=== PATIENT | male | born 1930 | race Caucasian/White ===

== ENCOUNTER 2018-07-22 10:57 | Inpatient (IN) | payer MEDICARE, OTHER ==
[~2018-07-22] VITALS: Ht 167.6 cm; Wt 63.5 kg
[2018-07-22 13:05] VITALS: BP 107/49
[2018-07-22] MEDS ORDERED: ACET325T9 PO (13:33)
[2018-07-22] MEDS ORDERED: VIT1CAPS12 PO (13:33)
[2018-07-22] MEDS ORDERED: MAGN400O7 PO (13:33)
[2018-07-22] MEDS ORDERED: DEXT15DR5 EACHEYE (13:33)
[2018-07-22] MEDS ORDERED: MAG355OR12 PO (13:33)
[2018-07-22] MEDS ORDERED: MIRT15TA PO (13:33)
[2018-07-22] MEDS ORDERED: CALC200T3 PO (13:33)
[2018-07-22] MEDS ORDERED: BUPR150T15 PO (13:33)
[2018-07-22] MEDS ORDERED: HYOSCYAMINE 0.125 MG TAB.RAPDIS PO PRN (14:00)
[2018-07-22] MEDS ORDERED: POLYVINYL ALCOHOL 1.4% OPHTH SOLUTION 15ML BOTTLE. OU PRN (14:00)
[2018-07-22] MEDS ORDERED: LOPERAMIDE 2 MG/15 ML ORAL SUSP. PO PRN (14:00)
[2018-07-22] MEDS ORDERED: CALCIUM CARBONATE 500 MG TAB.CHEW PO PRN (14:00)
[2018-07-22] MEDS ORDERED: MAG HYDROX/ALUMINUM HYD/SIMETH 30 ML ORAL.SUSP PO PRN (14:00)
[2018-07-22] MEDS ORDERED: SENNOSIDES 8.6 MG TABLET PO PRN (14:00)
[2018-07-22] MEDS ORDERED: MAGNESIUM HYDROXIDE 2,400 MG/30 ML ORAL.SUSP. PO PRN (14:00)
[2018-07-22] MEDS: LISINOPRIL 20 MG TABLET PO SCH (14:42)
[2018-07-22] MEDS: POTASSIUM CHLORIDE 10 MEQ TABLET.ER. PO SCH (14:42)
[2018-07-22] MEDS: amLODIPine BESYLATE 5 MG TABLET PO SCH (14:42)
[2018-07-22] MEDS: PANTOPRAZOLE 40 MG TABLET.DR. PO SCH (14:42)
[2018-07-22] MEDS: MULTIVITAMIN with MINERAL TABLET. PO SCH (14:42)
--- NOTE | 2018-07-22 15:08 | PDOC2 ---
CONSULT Date of Consult Date of Consult DATE: 07/22/18 TIME: 14:36 Reason for Consult Reason for Consult: iron def anemia, poor appetite History of Present Illness Reason for Visit: This is an 87-year-old male who has been at [facility]. He recently describes some confusion and poor by mouth intake but denies nausea or vomiting. He developed acute confusion recently and was transferred to [facility] where it was discovered that he did not have the presumed urinary infection that was hypothesized but instead has a iron deficient anemia with hemoglobin of 7.7. CT of the head was negative. He also has some dementia and possibly mild depression and remotely has a history of reflux. His family is available and state that he had a negative colonoscopy years ago at [facility] but we don't have those records. He denies hematemesis melena hematochezia or easy bruisability, heartburn, dysphagia. Does relate a several week history of constipation. He was not aware that he was anemic and this is a new complaint for him. Does take aspirin 325 mg daily but denies other NSAIDs or blood thinners. Past Medical History Cardiovascular: HTN GI: GERD Heme/Onc: Cancer (prostate (prostatectomy) and bladder (cystoscopy) ) Psych: Depression Past Surgical History Past Surgical History: Other (prostatectomy) Social History No ALCOHOL: occassional Current Medications Current Medications Current Medications Dextrose/Sodium Chloride 1,000 ml @ 75 mls/hr [id number] IV ; Start 07/22/18 at 14:00 Acetaminophen (Tylenol) 650 mg PRN Q4HRS PRN PO MILD PAIN / TEMP; Start 07/22/18 at 14:00 Bupropion HCl (Wellbutrin Xl) 150 mg DAILY PO ; Start 07/23/18 at 09:00 Calcium Carbonate/ Glycine (Tums) 200 mg PRN Q2HR PRN PO GI SYMPTOMS; Start 07/22/18 at 14:00 Al Hydroxide/Mg Hydroxide (Mylanta Plus Xs) 30 ml PRN DAILY PRN PO DYSPEPSIA; Start 07/22/18 at 14:00 Magnesium Hydroxide (Milk Of Magnesia) 2,400 mg PRN DAILY PRN PO CONSTIPATION; Start 07/22/18 at 14:00 Artificial Tears (Artificial Tears) 1 drop PRN Q4HRS PRN OU DRY EYE; Start 07/22/18 at 14:00 Mirtazapine (Remeron) 7.5 mg QHS PO ; Start 07/22/18 at 21:00 Multivitamins/ Minerals (I-Aliyah) 1 tab BID PO ; Start 07/22/18 at 21:00 Carvedilol (Coreg) 6.25 mg BIDWMEALS PO ; Start 07/22/18 at 17:00 Docusate Sodium (Colace) 100 mg BID PO ; Start 07/22/18 at 21:00 Donepezil HCl (Aricept) 5 mg QHS PO ; Start 07/22/18 at 21:00 Hyoscyamine (Anaspaz) 0.125 mg PRN Q4HRS PRN PO STOMACH CRAMPING; Start 07/22/18 at 14:00 Lisinopril (Prinivil) 20 mg DAILY PO ; Start 07/22/18 at 15:00 Loperamide HCl (Immodium Oral Susp) 1 mg PRN Q1HR PRN PO DIARRHEA; Start 07/22/18 at 14:00 Multivitamins (Thera M Plus) 1 tab DAILY PO ; Start 07/22/18 at 15:00 Oxybutynin Chloride (Ditropan) 5 mg BID PO ; Start 07/22/18 at 21:00 Pantoprazole Sodium (Protonix) 40 mg DAILYAC PO ; Start 07/22/18 at 15:00 Polyethylene Glycol (miraLAX PACKET) 17 gm BID PO ; Start 07/22/18 at 21:00 Potassium Chloride (Klor-Con) 10 meq DAILYWBKFT PO ; Start 07/22/18 at 15:00 Sennosides (Senna) 8.6 mg PRN BID PRN PO CONSTIPATION; Start 07/22/18 at 14:00 Amlodipine Besylate (Norvasc) 5 mg DAILY PO ; Start 07/22/18 at 15:00 Active Scripts Active Reported Tums (Calcium Carbonate) 200 Mg Tab.chew 200 Mg PO PRN Q2HR PRN Wellbutrin Xl (Bupropion Hcl) 150 Mg Tab.er.24h 1 Tab PO DAILY Artificial Tears Eye Drops (Dextran 70/Hypromellose) 15 Ml Drops 1 Drop EACHEYE PRN Q4HRS Preservision Areds Softgel (Vit A/Vit C/Vit E/Zinc/Copper) 1 Each Capsule 1 Cap PO BID Maalox Maximum Strength Susp (Mag Hydrox/Al Hydrox/Simeth) 355 Ml Oral.susp 30 Ml PO PRN QID PRN Milk Of Magnesia (Magnesium Hydroxide) 400 Mg/5 Ml Oral.susp 30 Ml PO PRN DAILY PRN Tylenol (Acetaminophen) 325 Mg Tablet 2 Tab PO PRN Q4HRS Remeron (Mirtazapine) 15 Mg Tablet 7.5 Mg PO QHS Allergies Allergies: Coded Allergies: Penicillins (Verified Allergy, Severe, Shortness of Air, 07/22/18) pt reports violent reaction,hives, swelling,and short of air ROS PSYCHOLOGICAL ROS: YES: Memory difficulties Genitourinary: YES Incontinence Physical Exam General: Alert, Oriented X3 HEENT: PERRLA, Other (hard of hearing) Lungs: Clear to auscultation Heart: Regular rate, Normal S1, Normal S2 Abdomen: Normal bowel sounds, Soft, No tenderness, No hepatosplenomegaly, No masses Extremities: No clubbing, No cyanosis Skin: No rashes Neuro: Normal speech Vitals VITALS Vital Signs Date Time Temp Pulse Resp B/P (MAP) Pulse Ox O2 Delivery O2 Flow Rate FiO2 07/22/18 13:05 98.2 64 18 107/49 (68) 98 Room Air 98.2 Assessment/Plan Assessment/Plan Iron deficiency anemia with hemoglobin 7.7. Unaware of this chronically but clearly this is been going on for some time. He denies any overt bleeding or abdominal pain but occult GI blood loss must be considered. Elevated CRP is disconcerting and suggests the possibility of an underlying inflammatory or neoplastic process such as colon cancer. History of prostate cancer and bladder cancer with urinary incontinence Plan: Check stool for Hemoccult I had a long discussion with daughter and son-in-law and patient about the appropriate workup. I will recommend EGD and colonoscopy since they are agreeable to proceed. This will be arranged on Monday. BALJEET MURILLO MD July 22, 2018 15:08
[2018-07-22] MEDS: IV DEXTROSE 5% - 0.9 % NACL 1,000 ML IV SCH (15:13)
[2018-07-22 15:17] VITALS: BP 112/46
[2018-07-22] MEDS ORDERED: BISACODYL 5 MG TABLET.DR. PO ONE (15:30)
[2018-07-22] MEDS: CARVEDILOL 6.25 MG TABLET. PO SCH (17:26)
[2018-07-22 19:00] VITALS: BP 122/50
[2018-07-22 20:48] LABS: FECAL OB PT NEGATIVE (NEG)
[2018-07-22] MEDS: POLYETHYLENE GLYCOL 3350 17 GM PACKET. PO SCH (20:58)
[2018-07-22] MEDS: MIRTAZAPINE 7.5 MG TABLET. PO SCH (21:30)
[2018-07-22] MEDS: DOCUSATE SODIUM 100 MG CAPSULE. PO SCH (21:30)
[2018-07-22] MEDS: OXYBUTYNIN CHLORIDE 5 MG TABLET PO SCH (21:31)
[2018-07-22] MEDS: MULTIVITAMIN I-VITE TABLET. PO SCH (21:31)
[2018-07-22] MEDS: DONEPEZIL HCL 5 MG TABLET. PO SCH (21:31)
[2018-07-22 23:00] VITALS: BP 120/62
[2018-07-23] MEDS: IV DEXTROSE 5% - 0.9 % NACL 1,000 ML IV SCH ×2 (03:00→15:53)
[2018-07-23 03:02] VITALS: BP 111/39
[2018-07-23 05:13] LABS: BASO % 1 % (0-3); EOS # 0.3 x10^3/uL (0.0-0.7); EOS % 5 % (0-3); HEMATOCRIT 23.3 % (39.0-53.0); HEMOGLOBIN 7.2 g/dL (13.0-17.5); LYMPH # 0.7 x10^3/uL (1.0-4.8); LYMPH % 11 % (24-48); MEAN CORPUSCULAR HEMOGLOBIN 19 pg (25-35); MEAN CORPUSCULAR HGB CONC 31 g/dL (31-37); MEAN CORPUSCULAR VOLUME 63 fL (79-100); MONO # 0.7 x10^3/uL (0.0-1.1); MONO % 11 % (0-9); NEUT # 4.5 x10^3uL (1.8-7.7); NEUT % 72 % (31-73); PLATELET COUNT 349 x10^3/uL (140-400); RED CELL DISTRIBUTION WIDTH 18.5 % (11.5-14.5); WHITE BLOOD COUNT 6.2 x10^3/uL (4.0-11.0)
[2018-07-23 05:42] LABS: ALBUMIN/GLOBULIN RATIO 0.9 (1.0-1.7); CALCIUM 8.8 mg/dL (8.5-10.1); CREATININE 0.7 mg/dL (0.7-1.3); GFR 106.7; POTASSIUM 4.2 mmol/L (3.5-5.1); TOTAL BILIRUBIN 0.3 mg/dL (0.2-1.0); TOTAL PROTEIN 6.3 g/dL (6.4-8.2)
[2018-07-23 07:00] VITALS: BP 126/52
[2018-07-23 07:54] LABS: ANISOCYTOSIS SLIGHT; HYPOCHROMIA MARKED; MICROCYTOSIS MARKED
[2018-07-23 07:55] LABS: OVALOCYTES OCC
[2018-07-23 08:12] LABS: PLT ESTIMATE ADEQUATE (ADEQUATE)
[2018-07-23] MEDS: POTASSIUM CHLORIDE 10 MEQ TABLET.ER. PO SCH (08:18)
[2018-07-23] MEDS: OXYBUTYNIN CHLORIDE 5 MG TABLET PO SCH ×2 (08:18→20:46)
[2018-07-23] MEDS: MULTIVITAMIN with MINERAL TABLET. PO SCH (08:18)
[2018-07-23] MEDS: amLODIPine BESYLATE 5 MG TABLET PO SCH (08:19)
[2018-07-23] MEDS: DOCUSATE SODIUM 100 MG CAPSULE. PO SCH ×2 (08:19→20:46)
[2018-07-23] MEDS: PANTOPRAZOLE 40 MG TABLET.DR. PO SCH (08:19)
[2018-07-23] MEDS: CARVEDILOL 6.25 MG TABLET. PO SCH ×2 (08:19→15:54)
[2018-07-23] MEDS: LISINOPRIL 20 MG TABLET PO SCH (08:19)
[2018-07-23] MEDS: buPROPion XL 150 MG TAB.ER.24H. PO SCH (08:19)
[2018-07-23] MEDS: POLYETHYLENE GLYCOL 3350 17 GM PACKET. PO SCH ×2 (08:20→20:45)
[2018-07-23] MEDS: MULTIVITAMIN I-VITE TABLET. PO SCH ×2 (08:24→21:18)
--- NOTE | 2018-07-23 08:24 | PDOC ---
GI PROGRESS NOTES Date Date/Time DATE: 07/23/18 TIME: 08:08 Subjective Subjective sleeping stool was hemocult negative Objective Vitals Vital Signs Date Time Temp Pulse Resp B/P (MAP) Pulse Ox O2 Delivery O2 Flow Rate FiO2 07/23/18 03:02 99.5 67 18 111/39 (63) 94 Room Air 99.5 07/22/18 23:00 100.2 74 16 120/62 (81) 94 Room Air 100.2 07/22/18 20:30 Room Air 07/22/18 19:00 99.4 68 16 122/50 (74) 96 Room Air 99.4 07/22/18 17:26 61 112/46 07/22/18 15:17 98.3 61 19 112/46 (68) 98 Room Air 98.3 07/22/18 13:05 98.2 64 18 107/49 (68) 98 Room Air 98.2 07/22/18 13:00 Room Air Labs Labs Laboratory Tests Test 07/22/18 20:20 07/23/18 04:30 Stool Occult Blood Negative (NEG) White Blood Count 6.2 x10^3/uL (4.0-11.0) Red Blood Count 3.70 x10^6/uL (4.30-5.70) Hemoglobin 7.2 g/dL (13.0-17.5) Hematocrit 23.3 % (39.0-53.0) Mean Corpuscular Volume 63 fL (79-100) Mean Corpuscular Hemoglobin 19 pg (25-35) Mean Corpuscular Hemoglobin Concent 31 g/dL (31-37) Red Cell Distribution Width 18.5 % (11.5-14.5) Platelet Count 349 x10^3/uL (140-400) Neutrophils (%) (Auto) 72 % (31-73) Lymphocytes (%) (Auto) 11 % (24-48) Monocytes (%) (Auto) 11 % (0-9) Eosinophils (%) (Auto) 5 % (0-3) Basophils (%) (Auto) 1 % (0-3) Neutrophils # (Auto) 4.5 x10^3uL (1.8-7.7) Lymphocytes # (Auto) 0.7 x10^3/uL (1.0-4.8) Monocytes # (Auto) 0.7 x10^3/uL (0.0-1.1) Eosinophils # (Auto) 0.3 x10^3/uL (0.0-0.7) Basophils # (Auto) 0.0 x10^3/uL (0.0-0.2) Hypochromasia Marked Anisocytosis Slight Microcytosis Marked Ovalocytes Occ Sodium Level 134 mmol/L (136-145) Potassium Level 4.2 mmol/L (3.5-5.1) Chloride Level 100 mmol/L (98-107) Carbon Dioxide Level 25 mmol/L (21-32) Anion Gap 9 (6-14) Blood Urea Nitrogen 7 mg/dL (8-26) Creatinine 0.7 mg/dL (0.7-1.3) Estimated GFR (Cockcroft-Gault) 106.7 BUN/Creatinine Ratio 10 (6-20) Glucose Level 125 mg/dL (70-99) Calcium Level 8.8 mg/dL (8.5-10.1) Total Bilirubin 0.3 mg/dL (0.2-1.0) Aspartate Amino Transf (AST/SGOT) 13 U/L (15-37) Alanine Aminotransferase (ALT/SGPT) 12 U/L (16-63) Alkaline Phosphatase 120 U/L (46-116) Total Protein 6.3 g/dL (6.4-8.2) Albumin 3.0 g/dL (3.4-5.0) Albumin/Globulin Ratio 0.9 (1.0-1.7) Physical Exam Physical Exam chest- clear abd - soft non tender no masses Assessment Assessment Iron Def anemia- chronic- no overt bleeding but must r/o occult GI source Elevated CRP- need to r/o inflammation or occult Ca Plan- proceed with bowel prep for EGD and colonoscopy tomorrow He had CT head at [facility] but consider CT abd/pelvis as well if not done- will defer to BALJEET Herrera MD July 23, 2018 08:24
[2018-07-23] MEDS ORDERED: IRON SUCROSE COMPLEX 200 MG in IV NORMAL SALINE 100ML 100 ML IV ONE (09:00)
--- NOTE | 2018-07-23 10:32 | HP ---
ADMIT DATE: 07/22/2018 HISTORY OF PRESENT ILLNESS: The patient is an 87-year-old male patient, a resident at [facility], who was brought to the Emergency Room with altered mental status. According to the [facility] nursing staff and the patient's family, he seemed to be having quite a bit of confusion during the night. In fact, the night before admission, he was found in his car and told the staff that he needed to drop his car off to [place]. Apparently, one of his daughters used to live there. The family stated that he has not been eating or drinking much. He has lost more than 10 pounds over the last several weeks, has not had any fever, chills, sweats. At times, he is very lucid and can care for himself. The medication that he takes routinely are blocked by the [facility] staff; however, they found a lot of medication in his position in his room. Family is concerned that he is declining mentally, and he will not be able to take care of himself. He was extensively investigated in the Emergency Room of [facility] and found to be extremely anemic. In fact, his hemoglobin was 7.7 and 25. His MCV was extremely low at 63 consistent with severe iron deficiency anemia. He was also found to be hyponatremic, his serum sodium was 129. His urinalysis was unremarkable and toxic screen was unremarkable and was admitted for further evaluation. I did consult Dr. Bach and Dr. Manzo, psychiatrist. PAST MEDICAL HISTORY: Significant for hypertension, has prostate cancer, benign prostatic hypertrophy. He underwent apparently prostatectomy. He is also incontinent of urine. PAST SURGICAL HISTORY: Significant for prostatectomy. ALLERGIES: HE IS ALLERGIC TO PENICILLIN. MEDICATIONS: He is currently on following medications, hyoscyamine sulfate 0.125 mg as needed for bladder spasm, carvedilol 6.25 mg twice a day, amlodipine 5 mg once a day, lisinopril 20 mg once a day, aspirin 325 mg daily, acetaminophen 650 mg every 4 hours, Wellbutrin-XL 150 mg daily. He is on mirtazapine 7.5 mg at bedtime, potassium chloride 10 mEq daily. He is on hydrochlorothiazide 25 mg daily. He is on artificial tears 1 drop to both eyes 4 times a day. He is on loperamide as needed for diarrhea, Maalox 15 mL every 4 hours as needed. He is on calcium carbonate 200 mg every 2 hours as needed for heartburn, Colace 100 mg twice a day, milk of magnesia 30 mL p.o. daily p.r.n. for constipation, MiraLax 17 grams daily p.r.n. for constipation, Senna twice a day, Protonix 20 mg once a day, oxybutynin chloride for Ditropan XL 10 mg once a day, multivitamin 1 tablet once a day. He is also on PreserVision added soft gel twice a day. FAMILY HISTORY: Unobtainable and probably noncontributory. SOCIAL HISTORY: He is recently. He has 2 daughters. He stated that he used to be a heavy smoker, but quit when he was 35 years old. 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 He is currently residing at [facility]. PHYSICAL EXAMINATION: GENERAL: When I examined him this morning, he looked well and was clearly in no apparent respiratory distress, pale, but no jaundice or cyanosis. No lymphadenopathy, no thyromegaly. No jugular venous distension. No lower limb edema. VITAL SIGNS: His heart rate was 68, blood pressure 126/52, temperature was 99, respiratory rate was 18 and oxygen saturation was 97%. HEAD, EYES, EARS, NOSE AND THROAT: Showed normocephalic, atraumatic. NECK: Supple. HEART: Showed normal first and second heart sounds. No gallop, rub or murmur. CHEST: Clear to auscultation. No crepitation or rhonchi. ABDOMEN: Distended, soft, nontender. NEUROLOGIC: He is demented, but without any obvious lateralizing sign. All his cranial nerves are intact. EXTREMITIES: He moves extremities without difficulty. LABORATORY DATA: His lab work this morning showed again that his white cell count was 6200, hemoglobin 7.2, hematocrit 23.3, MCV 63 and platelet count of 349,000, with normal manual differential. His chemistry showed a serum sodium 134, potassium 4.2, chloride 100, bicarbonate 25, anion gap of 9, BUN 7, creatinine 0.7, estimated GFR was 106 mL per minute. His glucose 125, calcium was 8.8. Total bilirubin, AST and ALT are normal. Alkaline phosphatase was slightly elevated. Total protein was 6.3, albumin 3. ASSESSMENT AND PLAN: In summary, this is an 87-year-old male patient who was admitted through the Emergency Room to [facility] and was transferred here for further evaluation. He was found to have hyponatremia, and I did discontinue his hydrochlorothiazide. His serum sodium is better today at 134. He has microcytic hypochromic anemia with hemoglobin 7.7, in fact, today's hemoglobin 7.2, hematocrit was 23 and his MCV was only 63. We transferred him to [facility] to consult the Gastroenterology. His family wanted to investigate this further including his EGD and colonoscopy. I will arrange for him to have a CT scan of the abdomen and pelvis and would check a stool for occult blood and decide on further management accordingly. LORI SIMENTAL MD DR: CHIDI/chiqui JOB#: [id number] / [id number]
[2018-07-23] MEDS ORDERED: IOHEXOL 300 MG/ML 100ML VIAL. IV ONE (10:45)
[2018-07-23] MEDS ORDERED: IOHEXOL 240 MG/ML 50ML VIAL. PO ONE (10:45)
[2018-07-23 11:00] VITALS: BP 133/54
--- NOTE | 2018-07-23 13:01 | RAD ---
Examination: CT of the abdomen pelvis with oral and IV contrast HISTORY: History of iron deficiency anemia, high ESR COMPARISON: None available Technique: Axial CT images of the abdomen pelvis were performed with oral and IV contrast. Coronal and sagittal reformats are performed Exposure: One or more of the following individualized dose reduction techniques were utilized for this examination: 1. Automated exposure control 2. Adjustment of the mA and/or kV according to patient size 3. Use of iterative reconstruction technique FINDINGS: Linear atelectasis is identified in the bibasilar lungs. No evidence of free air identified in the abdomen. The visualized liver, spleen, adrenals grossly appears unremarkable. The gallbladder is mildly distended. There is mild enhancement of the wall of the gallbladder. The visualized pancreas grossly appears unremarkable. The small bowel is nondilated. Moderate amount of feces and gas identified in the colon. Sigmoid colon diverticulosis. Mild bilateral perinephric fat stranding identified. The kidneys enhance symmetrically. No evidence of hydronephrosis. Moderate aortic atherosclerosis. Moderate degenerative changes lumbar spine. Calcification in the region of the prostate. IMPRESSION: 1. Mild bilateral perinephric fat stranding, nonspecific could be due to medical renal disease.. 2. Mild enhancement of the gallbladder wall. Ultrasound right upper quadrant can be considered to exclude cholecystitis. 3. Moderate hiatal hernia. Electronically signed by: Dc Capone MD (07/23/2018 12:58 PM) [place] [id number]
[2018-07-23 15:00] VITALS: BP 118/52
[2018-07-23] MEDS ORDERED: POLYETHYLENE GLYCOL 3350 BTL 238 GM POWDER PO ONE (15:00)
--- NOTE | 2018-07-23 15:04 | NUR ---
SW following pt for anticipated dc needs. Chart reviewed and discussed with RN. SW confirmed Pt is a resident at [facility]. PT/OT pending and Pt declined to participate with PT today. SW will await for PT/OT recommendation to assess skilled needs. Will continue to follow.
[2018-07-23 19:00] VITALS: BP 153/63
[2018-07-23] MEDS: DONEPEZIL HCL 5 MG TABLET. PO SCH (20:46)
[2018-07-23] MEDS: MIRTAZAPINE 7.5 MG TABLET. PO SCH (20:46)
[2018-07-23 23:00] VITALS: BP 137/66
[2018-07-23] MEDS: ACETAMINOPHEN 325 MG TABLET. PO PRN (23:38)
[2018-07-24] MEDS ORDERED: PIP/TAZO PER PHARMACY MC PRN (00:45)
[2018-07-24] MEDS ORDERED: VANCOMYCIN 1.5 GM in IV NORMAL SALINE 500ML BAG 500 ML IV ONE (01:00)
--- NOTE | 2018-07-24 01:09 | RAD ---
CHEST AP ONLY Clinical Indication: Fever and cough. Comparison: None. Findings: Atherosclerotic thoracic aorta. Cardiac size is normal. There are bilateral central interstitial and alveolar opacities. There is elevation of right hemidiaphragm. No pleural effusion or pneumothorax. Degenerative endplate spurring of the thoracic spine. IMPRESSION: Bilateral central interstitial and alveolar opacities may be infectious/inflammatory. Electronically signed by: Jose Wilder MD (07/24/2018 1:07 AM) [id number]
[2018-07-24 01:49] LABS: CREATININE 0.7 mg/dL (0.7-1.3); GFR 106.7; POTASSIUM 3.7 mmol/L (3.5-5.1)
[2018-07-24 02:55] VITALS: BP 113/51
[2018-07-24 03:09] LABS: BASO % 1 % (0-3); EOS % 1 % (0-3); HEMATOCRIT 24.4 % (39.0-53.0); HEMOGLOBIN 7.4 g/dL (13.0-17.5); LYMPH # 0.4 x10^3/uL (1.0-4.8); LYMPH % 6 % (24-48); MEAN CORPUSCULAR HEMOGLOBIN 19 pg (25-35); MEAN CORPUSCULAR HGB CONC 30 g/dL (31-37); MEAN CORPUSCULAR VOLUME 63 fL (79-100); MONO # 0.5 x10^3/uL (0.0-1.1); MONO % 7 % (0-9); NEUT % 86 % (31-73); PLATELET COUNT 336 x10^3/uL (140-400); RED BLOOD COUNT 3.88 x10^6/uL (4.30-5.70); RED CELL DISTRIBUTION WIDTH 18.3 % (11.5-14.5); WHITE BLOOD COUNT 7.1 x10^3/uL (4.0-11.0)
[2018-07-24 03:23] LABS: BILIRUBIN,URINE NEGATIVE (NEG); CLARITY,URINE CLEAR; COLOR,URINE YELLOW; NITRITE,URINE NEGATIVE (NEG); PROTEIN,URINE NEGATIVE (NEG-TRACE); UROBILINOGEN,URINE 0.2 mg/dL (0.2 mg/dL)
[2018-07-24 03:25] LABS: BACTERIA,URINE 0 /HPF (0-FEW); SQUAMOUS EPITHELIAL CELL,UR FEW /LPF
[2018-07-24 03:43] LABS: % BANDS 1 % (0-9); % EOS 1 % (0-5); % LYMPHS 8 % (24-48); % MONOS 5 % (0-10); % SEGS 85 % (35-66); HYPOCHROMIA MARKED; MICROCYTOSIS MARKED; PLT ESTIMATE ADEQUATE (ADEQUATE)
[2018-07-24] MEDS: VANCOMYCIN PER PHARMACY MC PRN (03:55)
--- NOTE | 2018-07-24 03:55 | NUR ---
Pharmacy Vancomycin Dosing Note S:Consulted to monitor and dose vancomycin started 07/24/18. O:ELEANOR MAURICIO is a 87 year old M with Empiric . Height: 5 feet, 6 inches Weight: 63.282332 kg [place] Body Weight: 63.80 Adjusted Body Weight: 63.68 Dosing Weight: Actual Other Antibiotics: LABS: Last BUN: 4 Last Creatinine: 0.7 Creatinine Clearance: 47 mL/min Last WBC: 6.2 Last Procalcitonin: Tmax (past 24 hours): 102.9 Microbiology: I/O: Drug Levels: Last level: on at Last dose given 07/24/18 at 0200 Vancomycin Dosing: Loading Dose: 1500 mg x1 Dosing Weight: Actual Target Trough: 15-20 A: Based on: WT AND CRCL P: 1. Begin Vancomycin 1000 mg IV q24h 2. Follow up Trough level on 07/26/18 at 0130 3. Pharmacy will continue to monitor, follow and adjust therapy as needed. STEPHENIE PENG RPH, 07/24/18 [id number] Signed: 07/24/18 at 035 by STEPHENIE PENG RPH PHA
[2018-07-24] MEDS: IV DEXTROSE 5% - 0.9 % NACL 1,000 ML IV SCH ×2 (04:48→17:31)
[2018-07-24] MEDS: ACETAMINOPHEN 325 MG TABLET. PO PRN (04:59)
[2018-07-24 07:00] VITALS: BP 137/66
[2018-07-24] MEDS ORDERED: PROCHLORPERAZINE 10 MG/2 ML VIAL. IV PRN (07:00)
[2018-07-24] MEDS ORDERED: HYDROmorphone 2 MG/ML VIAL IV PRN (07:00)
[2018-07-24] MEDS ORDERED: LIDOCAINE 1% PF 2 ML VIAL. ID PRN (07:00)
[2018-07-24] MEDS ORDERED: IV RINGERS,LACTATED 1000ML 1,000 ML IV SCH (07:00)
[2018-07-24] MEDS ORDERED: MORPHINE SULFATE 2 MG/ML VIAL. IV PRN (07:00)
[2018-07-24] MEDS ORDERED: fentaNYL PF VIAL 100 MCG/2 ML VIAL IV PRN ×2 (07:00)
[2018-07-24] MEDS: PANTOPRAZOLE 40 MG TABLET.DR. PO SCH (07:30)
[2018-07-24] MEDS: POTASSIUM CHLORIDE 10 MEQ TABLET.ER. PO SCH (08:00)
[2018-07-24] MEDS ORDERED: MAGNESIUM CITRATE 296 ML SOLUTION. PO ONE (08:00)
[2018-07-24] MEDS ORDERED: BISACODYL 5 MG TABLET.DR. PO ONE (08:00)
[2018-07-24] MEDS: CARVEDILOL 6.25 MG TABLET. PO SCH ×2 (08:11→16:13)
--- NOTE | 2018-07-24 09:55 | PDOC ---
Objective: Objective: Reviewed chart, d/w RN - not much results from prep. D/w Dr. Smith earlier this morning. Tmax 102.9. Vital Signs: Vital Signs Date Time Temp Pulse Resp B/P (MAP) Pulse Ox O2 Delivery O2 Flow Rate FiO2 07/24/18 08:11 89 137/66 07/24/18 08:00 Room Air 07/24/18 07:00 102.9 18 90 102.9 Labs: Laboratory Tests Test 07/24/18 01:05 07/24/18 01:28 White Blood Count 7.1 x10^3/uL Red Blood Count 3.88 x10^6/uL Hemoglobin 7.4 g/dL Hematocrit 24.4 % Mean Corpuscular Volume 63 fL Mean Corpuscular Hemoglobin 19 pg Mean Corpuscular Hemoglobin Concent 30 g/dL Red Cell Distribution Width 18.3 % Platelet Count 336 x10^3/uL Neutrophils (%) (Auto) 86 % Lymphocytes (%) (Auto) 6 % Monocytes (%) (Auto) 7 % Eosinophils (%) (Auto) 1 % Basophils (%) (Auto) 1 % Neutrophils # (Auto) 6.0 x10^3uL Lymphocytes # (Auto) 0.4 x10^3/uL Monocytes # (Auto) 0.5 x10^3/uL Eosinophils # (Auto) 0.0 x10^3/uL Basophils # (Auto) 0.0 x10^3/uL Segmented Neutrophils % 85 % Band Neutrophils % 1 % Lymphocytes % 8 % Monocytes % 5 % Eosinophils % 1 % Platelet Estimate Adequate Hypochromasia Marked Microcytosis Marked Sodium Level 132 mmol/L Potassium Level 3.7 mmol/L Chloride Level 97 mmol/L Carbon Dioxide Level 24 mmol/L Anion Gap 11 Blood Urea Nitrogen 4 mg/dL Creatinine 0.7 mg/dL Estimated GFR (Cockcroft-Gault) 106.7 Glucose Level 134 mg/dL Lactic Acid Level 1.5 mmol/L Calcium Level 9.0 mg/dL Urine Collection Type Unknown Urine Color Yellow Urine Clarity Clear Urine pH 6.0 Urine Specific [place] 1.025 Urine Protein Negative mg/dL Urine Glucose (UA) Negative mg/dL Urine Ketones (Stick) Negative mg/dL Urine Blood Trace Urine Nitrite Negative Urine Bilirubin Negative Urine Urobilinogen Dipstick 0.2 mg/dL Urine Leukocyte Esterase Negative Urine RBC 1-2 /HPF Urine WBC 1-4 /HPF Urine Squamous Epithelial Cells Few /LPF Urine Bacteria 0 /HPF Urine Mucus Mod /LPF Imaging: CT A/P w/ PO and IV contrast 07/23/18 FINDINGS: Linear atelectasis is identified in the bibasilar lungs. No evidence of free air identified in the abdomen. The visualized liver, spleen, adrenals grossly appears unremarkable. The gallbladder is mildly distended. There is mild enhancement of the wall of the gallbladder. The visualized pancreas grossly appears unremarkable. The small bowel is nondilated. Moderate amount of feces and gas identified in the colon. Sigmoid colon diverticulosis. Mild bilateral perinephric fat stranding identified. The kidneys enhance symmetrically. No evidence of hydronephrosis. Moderate aortic atherosclerosis. Moderate degenerative changes lumbar spine. Ca lcification in the region of the prostate. IMPRESSION: 1. Mild bilateral perinephric fat stranding, nonspecific could be due to medical renal disease.. 2. Mild enhancement of the gallbladder wall. Ultrasound right upper quadrant can be considered to exclude cholecystitis. 3. Moderate hiatal hernia. CXR 07/24 IMPRESSION: Bilateral central interstitial and alveolar opacities may be infectious/inflammatory. PE: GEN: NAD LUNGS: room air HEART: RRR ABD: NABS, S/ND/NT NEURO/PSYCH: sleeping, did not awaken during exam A/P: JAMILA, elevated CRP Fever -- Note plans for abd US and ID opinion. Reviewed w/ Dr. Stockton - slavacel 'scopes today considering fever. Resume clear liquids, consider prep later today pending hospital course. ANGELINA BHAT July 24, 2018 09:55
--- NOTE | 2018-07-24 10:34 | PDOC ---
Infectious Disease Note Vital Sign Vital Signs Vital Signs Date Time Temp Pulse Resp B/P (MAP) Pulse Ox O2 Delivery O2 Flow Rate FiO2 07/24/18 08:11 89 137/66 07/24/18 08:00 Room Air 07/24/18 07:00 102.9 18 90 102.9 Labs Lab Laboratory Tests Test 07/24/18 01:05 07/24/18 01:28 White Blood Count 7.1 x10^3/uL (4.0-11.0) Red Blood Count 3.88 x10^6/uL (4.30-5.70) Hemoglobin 7.4 g/dL (13.0-17.5) Hematocrit 24.4 % (39.0-53.0) Mean Corpuscular Volume 63 fL (79-100) Mean Corpuscular Hemoglobin 19 pg (25-35) Mean Corpuscular Hemoglobin Concent 30 g/dL (31-37) Red Cell Distribution Width 18.3 % (11.5-14.5) Platelet Count 336 x10^3/uL (140-400) Neutrophils (%) (Auto) 86 % (31-73) Lymphocytes (%) (Auto) 6 % (24-48) Monocytes (%) (Auto) 7 % (0-9) Eosinophils (%) (Auto) 1 % (0-3) Basophils (%) (Auto) 1 % (0-3) Neutrophils # (Auto) 6.0 x10^3uL (1.8-7.7) Lymphocytes # (Auto) 0.4 x10^3/uL (1.0-4.8) Monocytes # (Auto) 0.5 x10^3/uL (0.0-1.1) Eosinophils # (Auto) 0.0 x10^3/uL (0.0-0.7) Basophils # (Auto) 0.0 x10^3/uL (0.0-0.2) Segmented Neutrophils % 85 % (35-66) Band Neutrophils % 1 % (0-9) Lymphocytes % 8 % (24-48) Monocytes % 5 % (0-10) Eosinophils % 1 % (0-5) Platelet Estimate Adequate (ADEQUATE) Hypochromasia Marked Microcytosis Marked Sodium Level 132 mmol/L (136-145) Potassium Level 3.7 mmol/L (3.5-5.1) Chloride Level 97 mmol/L (98-107) Carbon Dioxide Level 24 mmol/L (21-32) Anion Gap 11 (6-14) Blood Urea Nitrogen 4 mg/dL (8-26) Creatinine 0.7 mg/dL (0.7-1.3) Estimated GFR (Cockcroft-Gault) 106.7 Glucose Level 134 mg/dL (70-99) Lactic Acid Level 1.5 mmol/L (0.4-2.0) Calcium Level 9.0 mg/dL (8.5-10.1) Urine Collection Type Unknown Urine Color Yellow Urine Clarity Clear Urine pH 6.0 Urine Specific [place] 1.025 Urine Protein Negative mg/dL (NEG-TRACE) Urine Glucose (UA) Negative mg/dL (NEG) Urine Ketones (Stick) Negative mg/dL (NEG) Urine Blood Trace (NEG) Urine Nitrite Negative (NEG) Urine Bilirubin Negative (NEG) Urine Urobilinogen Dipstick 0.2 mg/dL (0.2 mg/dL) Urine Leukocyte Esterase Negative (NEG) Urine RBC 1-2 /HPF (0-2) Urine WBC 1-4 /HPF (0-4) Urine Squamous Epithelial Cells Few /LPF Urine Bacteria 0 /HPF (0-FEW) Urine Mucus Mod /LPF Micro CT abd/pel 07/23 IMPRESSION: 1. Mild bilateral perinephric fat stranding, nonspecific could be due to medical renal disease.. 2. Mild enhancement of the gallbladder wall. Ultrasound right upper quadrant can be considered to exclude cholecystitis. Objective Assessment fever lung infiltrates PCN allergy - long time ago - has had amoxicillin Anemia Plan Plan of Care Check Procalcitonin/lipase/TSH/influenza screen Add meropenem and cont Vanc D/c Levofloxacin for now f/u labs in am F/u blood and urine cults [facility] note reviewed Thank you # [phone] DESMOND BERRIOS MD July 24, 2018 10:34
[2018-07-24 10:51] VITALS: BP 110/58
[2018-07-24] MEDS: buPROPion XL 150 MG TAB.ER.24H. PO SCH (11:19)
[2018-07-24] MEDS: amLODIPine BESYLATE 5 MG TABLET PO SCH (11:20)
[2018-07-24] MEDS: LISINOPRIL 20 MG TABLET PO SCH (11:20)
[2018-07-24] MEDS: OXYBUTYNIN CHLORIDE 5 MG TABLET PO SCH ×2 (11:20→21:28)
[2018-07-24] MEDS: MULTIVITAMIN I-VITE TABLET. PO SCH ×2 (11:20→21:29)
[2018-07-24] MEDS: DOCUSATE SODIUM 100 MG CAPSULE. PO SCH ×2 (11:20→21:28)
[2018-07-24] MEDS: MULTIVITAMIN with MINERAL TABLET. PO SCH (11:20)
[2018-07-24] MEDS: POLYETHYLENE GLYCOL 3350 17 GM PACKET. PO SCH ×2 (11:21→21:28)
[2018-07-24] MEDS: MEROPENEM 500 MG in IV NORMAL SALINE 50ML 50 ML IV SCH ×2 (11:21→17:31)
[2018-07-24 12:13] LABS: INFLUENZA A PATIENT NEGATIVE (NEGATIVE); INFLUENZA B PATIENT NEGATIVE (NEGATIVE)
--- NOTE | 2018-07-24 13:01 | RAD ---
ABDOMEN LTD History: Abnormal CT, fever Comparison: CT exam July 23, 2018 Findings: Multiple sonographic images of the abdomen are submitted. Pancreas is not well-visualized due to bowel gas. There is also suboptimal visualization of the inferior vena cava, right kidney, and left lobe of liver. Right lobe of liver measured about 17 cm longitudinal. Right kidney measured 11.3 x 5.4 x 4.5 cm, no hydronephrosis. Gallbladder is present, nonspecific gallbladder wall thickening about 0.4 cm, no significant intraluminal abnormality of the gallbladder. Common bile back is within normal limits about 0.4 cm. Impression: 1. There is nonspecific gallbladder wall thickening about 0.4 cm, no demonstrable intraluminal abnormality of the gallbladder. There is no biliary ductal dilatation. Electronically signed by: Lenin Moreira MD (07/24/2018 12:58 PM) [id number]
--- NOTE | 2018-07-24 13:03 | NUR ---
SW following Pt. PT/OT on hold today as pt is not feeling well. Pt was going to have EGD today but scheduled for tomorrow due to high temp this morning. ID consulted. Will continue to to follow. JOSE BRIGGS.
[2018-07-24 14:50] VITALS: BP 105/41
[2018-07-24] MEDS ORDERED: VANCOMYCIN PER PHARMACY MC PRN (15:30)
--- NOTE | 2018-07-24 16:00 | PN ---
DATE: 07/24/2018 SUBJECTIVE: The patient is resting slightly propped up, sleeping comfortably, in no apparent distress. He apparently spiked a temperature yesterday up to 102.9. We did glover culture him, started him empirically on IV antibiotic. He has had a CT scan of the abdomen and pelvis with oral and IV contrast, which basically showed that the patient has mild bilateral perinephric fat stranding, nonspecific, could be due to medical renal disease. He has also mild enhancement of gallbladder wall. Ultrasound of right upper quadrant can be considered to exclude cholecystitis and moderate hiatal hernia. He actually was scheduled to have upper and lower GI endoscopy today; however, that was postponed given that he is now febrile. When I saw him this morning, he was resting slightly propped up, sleeping comfortably, in no apparent distress. On questioning him, he denied any complaint. Nursing staff did not voice any concern and stated he had generally an uneventful night. PHYSICAL EXAMINATION: GENERAL: When I examined him, he looked pale, somewhat cachectic, but no jaundice or cyanosis. No lymphadenopathy or thyromegaly. No jugular venous distension. No limb edema. VITAL SIGNS: His heart rate was 89, blood pressure was 137/66, temperature was 102.9, respiratory rate was 18 and oxygen saturation was 90% on room air. HEAD, EYES, EARS, NOSE AND THROAT: Showed normocephalic, atraumatic. NECK: Supple. HEART: Showed normal first and second heart sounds. No gallop, rub or murmur. CHEST: Clear to auscultation. No crepitation or rhonchi. ABDOMEN: Distended, soft, nontender. NEUROLOGIC: He was demented, but without any obvious lateralizing sign. INS AND OUTS: His intake was 1250, no output was recorded. LABORATORY DATA: This morning showed a white cell count 7100, hemoglobin 7.4, hematocrit 24.4, MCV 63 and platelet count 336,000 with normal manual differential. His serum sodium was 132, potassium 3.7, chloride 97, bicarbonate was 24, anion gap of 11, BUN 4, creatinine 0.7, estimated GFR was 106 mL per minute. His glucose was 134, lactic acid was 1.5, calcium was 9. ASSESSMENT: This is an 87-year-old male patient who was transferred from [facility]. He was admitted with: 1. Altered mental status. 2. He was found to have hyponatremia. 3. Severe microcytic hypochromic anemia with low iron stores. 4. He has also elevated inflammatory markers including sed rate and CRP. He was seen in consultation by the cardiology fellow and the plan was for him to have esophagogastroduodenoscopy and colonoscopy, unfortunately he spiked a temperature. We did glover culture him yesterday, started him empirically on IV vancomycin and Levaquin as he is ALLERGIC TO PENICILLIN. PLAN: Is to continue with the IV antibiotic. Continue with IV fluid. I have consulted the Infectious Disease specialist to assist with antibiotic management. LORI SIMENTAL MD DR: CHIDI/chiqui JOB#: [id number] / [id number]
[2018-07-24 19:00] VITALS: BP 112/41
[2018-07-24] MEDS: LACTOBACILLUS RHAMNOSUS GG 1 CAPSULE. PO SCH (21:28)
[2018-07-24] MEDS: MIRTAZAPINE 7.5 MG TABLET. PO SCH (21:28)
[2018-07-24] MEDS: DONEPEZIL HCL 5 MG TABLET. PO SCH (21:29)
--- NOTE | 2018-07-24 22:50 | CONS ---
DATE OF CONSULTATION: 07/24/2018 INFECTIOUS DISEASE CONSULTATION: LOCATION: The patient's room 536. REQUESTING PHYSICIAN: Dr. Smith. REASON FOR CONSULTATION: Pneumonia/pyelonephritis versus cholecystitis. HISTORY OF PRESENT ILLNESS: The patient is a pleasant 87-year-old gentleman who is a resident at [facility]. He was brought to on 07/20/2018 secondary to mental status change that occurred overnight. In the ER, he was found to have hemoglobin of 7.7, had very low MCV, had sodium of 129. White blood cell count was 7.4. Urinalysis was negative for blood, negative for nitrite, leukocyte esterase with 1-4 wbc's, few bacteria and occasional squamous cells. He underwent a CT scan of his head that showed no acute intracranial abnormalities. He was worked up by Psychiatry and was concerned about depression. He was then transferred to [facility] for further evaluation with GI. He is to undergo EGD as well as colonoscopy today; however, overnight he had temperatures as high as 102.9. Blood cultures and urine cultures were obtained. Chest x-ray was obtained as well that showed some bilateral central interstitial and alveolar opacities. HE IS REPORTED TO BE PENICILLIN ALLERGIC and he was placed on vancomycin, levofloxacin. Currently, the patient is lying in bed. He states he is fairly comfortable. He denies fever or chills or sweats. He has no gross headache. He has no sore throat, cough or chest pain. Denies any abdominal pain. No nausea, vomiting, no diarrhea. Denies any complications passing his urine. Denies any rash or joint swellings. PAST MEDICAL HISTORY: Positive for gastroesophageal reflux disease, hyperlipidemia, malignant neoplasm of the bladder neck, hypertension, prostate cancer, constipation, macular degeneration, dementia, depression, chronic pain. PAST SURGICAL HISTORY: Listed as prostatectomy. ALLERGIES: LISTED PENICILLIN. HE STATES THAT HAPPENED A LONG TIME AGO AND IS ASSOCIATED WITH HORSE SERUM. He believes he has had amoxicillin, but uncertain. SOCIAL HISTORY: Again, he lives at [place]. He is . He used to have a history of heavy smoking as well as alcohol abuse. FAMILY HISTORY: Noncontributory. CURRENT MEDICATIONS: Include vancomycin, levofloxacin, Norvasc, Wellbutrin, Coreg, Aricept, Prinivil, Remeron, multivitamin, Ditropan and Protonix. Other meds are available and reviewed in the chart. PHYSICAL EXAMINATION: VITAL SIGNS: T-max has been 102.9, pulse 89, respirations 18, blood pressure 137/66, satting 90% on room air. CONSTITUTIONAL: He is lying down in bed. He is fairly comfortable this morning. He is in no acute distress. He is undergoing beginning of an ultrasound on his abdomen. HEENT: He had normal conjunctivae. Oral cavity, pharynx was clear. No thrush. NECK: Supple, no JVD. LUNGS: Clear to auscultation. Decreased in the bases, no wheeze. HEART: S1, S2. ABDOMEN: Soft, nontender, nondistended with positive bowel sounds. EXTREMITIES: Without clubbing, cyanosis nor gross edema. SKIN: Warm to touch without generalized rash. NEUROLOGIC: He moves all extremities without complications. Answers questions appropriately. PSYCHIATRIC: Affect was pleasant. LABORATORY DATA: White count 7.1, hemoglobin 7.4, platelets of 336, neutrophils 85, bands 1, lymphs are 8, creatinine of 0.7. AST was 13, ALT was 12, alkaline phosphatase was 120 on arrival. Urinalysis from the , a few squamous cells, no bacteria. Nitrite and leukocyte esterase were negative, 1-4 wbc's. Occult blood was negative. Chest x-ray reviewed in history of present illness. CT scan, mild bilateral perinephric stranding, nonspecific, mild enhancement of gallbladder, mild hiatal hernia and some linear atelectasis in the bibasilar lungs. IMPRESSION: 1. Fever. 2. Lung infiltrates. 3. PENICILLIN ALLERGY, long time ago, has had amoxicillin. 4. Anemia. RECOMMENDATIONS: We will check procalcitonin, lipase, TSH as well as influenza screen. We will add meropenem, discontinue the levofloxacin. Follow up labs in the morning. Follow up blood cultures, urine cultures, and I did review Luis's notes. We will continue vancomycin. Thank you for asking us to participate in this patient's care. If you have any questions, please do not hesitate to contact me. DESMOND BERRIOS MD DR: BRIAN/chiqui JOB#: [id number] / [id number]
[2018-07-24 23:00] VITALS: BP 132/60
[2018-07-25] VITALS (12 sets, daily range): BP systolic 106–132; BP diastolic 47–71
[2018-07-25] MEDS: MEROPENEM 500 MG in IV NORMAL SALINE 50ML 50 ML IV SCH ×4 (00:20→19:46)
[2018-07-25] MEDS: VANCOMYCIN 1 GM in IV NORMAL SALINE 250ML 250 ML IV SCH (02:07)
[2018-07-25 04:27] LABS: RED BLOOD COUNT 3.34 x10^6/uL (4.30-5.70); RED CELL DISTRIBUTION WIDTH 18.8 % (11.5-14.5); WHITE BLOOD COUNT 5.5 x10^3/uL (4.0-11.0)
[2018-07-25 04:34] LABS: HEMOGLOBIN 6.5 g/dL (13.0-17.5)
[2018-07-25 04:42] LABS: CALCIUM 8.2 mg/dL (8.5-10.1); CREATININE 0.6 mg/dL (0.7-1.3); GFR 127.4; POTASSIUM 3.2 mmol/L (3.5-5.1)
[2018-07-25] MEDS: IV DEXTROSE 5% - 0.9 % NACL 1,000 ML IV SCH ×2 (09:10→22:00)
[2018-07-25] MEDS: buPROPion XL 150 MG TAB.ER.24H. PO SCH (09:12)
[2018-07-25] MEDS: CARVEDILOL 6.25 MG TABLET. PO SCH ×2 (09:12→17:24)
[2018-07-25] MEDS: MULTIVITAMIN I-VITE TABLET. PO SCH ×2 (09:12→21:56)
[2018-07-25] MEDS: DOCUSATE SODIUM 100 MG CAPSULE. PO SCH ×2 (09:13→21:56)
[2018-07-25] MEDS: PANTOPRAZOLE 40 MG TABLET.DR. PO SCH (09:13)
[2018-07-25] MEDS: LISINOPRIL 20 MG TABLET PO SCH (09:13)
[2018-07-25] MEDS: amLODIPine BESYLATE 5 MG TABLET PO SCH (09:13)
[2018-07-25] MEDS: OXYBUTYNIN CHLORIDE 5 MG TABLET PO SCH ×2 (09:13→21:57)
[2018-07-25] MEDS: MULTIVITAMIN with MINERAL TABLET. PO SCH (09:13)
[2018-07-25] MEDS: POTASSIUM CHLORIDE 10 MEQ TABLET.ER. PO SCH (09:13)
[2018-07-25] MEDS: LACTOBACILLUS RHAMNOSUS GG 1 CAPSULE. PO SCH ×2 (09:13→21:56)
[2018-07-25] MEDS: POLYETHYLENE GLYCOL 3350 17 GM PACKET. PO SCH ×2 (09:14→21:57)
--- NOTE | 2018-07-25 09:48 | NUR ---
CHRISTELLE following Pt. PT/OT recommends SNU. Spoke with pt at bedside and pt agreeable with [facility]. CHRISTELLE phoned and faxed referral to [facility]. Pt acceptance and admission pending. CHRISTELLE left a voice mail to pt's daughter, Jeannette, phone: [phone] about dc plan. Will continue to follow. JOSE BRIGGS.
--- NOTE | 2018-07-25 11:14 | PDOC ---
Infectious Disease Note Subjective Subjective Doing ok. No complaints. No F/C/S/N/V/D/SOA/Rash/dysuria ROS ROS o/w neg Vital Sign Vital Signs Vital Signs Date Time Temp Pulse Resp B/P (MAP) Pulse Ox O2 Delivery O2 Flow Rate FiO2 07/25/18 09:13 76 122/50 07/25/18 07:55 Room Air 07/25/18 07:00 99.5 14 90 99.5 Physical Exam PHYSICAL EXAM CONSTITUTIONAL: He is lying down in bed. He is fairly comfortable this morning. He is in no acute distress. He is undergoing beginning of an ultrasound on his abdomen. HEENT: He had normal conjunctivae. Oral cavity, pharynx was clear. No thrush. NECK: Supple, no JVD. LUNGS: Clear to auscultation. Decreased in the bases, no wheeze. HEART: S1, S2. 1-2/6 today ABDOMEN: Soft, nontender, nondistended with positive bowel sounds. EXTREMITIES: Without clubbing, cyanosis nor gross edema. SKIN: Warm to touch without generalized rash. NEUROLOGIC: He moves all extremities without complications. Answers questions appropriately. PSYCHIATRIC: Affect was pleasant Labs Lab Laboratory Tests Test 07/24/18 11:30 07/25/18 03:55 Influenza Type A Antigen Negative (NEGATIVE) Influenza Type B Antigen Negative (NEGATIVE) White Blood Count 5.5 x10^3/uL (4.0-11.0) Red Blood Count 3.34 x10^6/uL (4.30-5.70) Hemoglobin 6.5 g/dL (13.0-17.5) Hematocrit 21.0 % (39.0-53.0) Mean Corpuscular Volume 63 fL (79-100) Mean Corpuscular Hemoglobin 20 pg (25-35) Mean Corpuscular Hemoglobin Concent 31 g/dL (31-37) Red Cell Distribution Width 18.8 % (11.5-14.5) Platelet Count 310 x10^3/uL (140-400) Sodium Level 136 mmol/L (136-145) Potassium Level 3.2 mmol/L (3.5-5.1) Chloride Level 103 mmol/L (98-107) Carbon Dioxide Level 22 mmol/L (21-32) Anion Gap 11 (6-14) Blood Urea Nitrogen 4 mg/dL (8-26) Creatinine 0.6 mg/dL (0.7-1.3) Estimated GFR (Cockcroft-Gault) 127.4 Glucose Level 301 mg/dL (70-99) Calcium Level 8.2 mg/dL (8.5-10.1) Micro Abd U/S 07/24 Impression: 1. There is nonspecific gallbladder wall thickening about 0.4 cm, no demonstrable intraluminal abnormality of the gallbladder. There is no biliary ductal dilatation. CT abd/pel 07/23 IMPRESSION: 1. Mild bilateral perinephric fat stranding, nonspecific could be due to medical renal disease.. 2. Mild enhancement of the gallbladder wall. Ultrasound right upper quadrant can be considered to exclude cholecystitis. Objective Assessment sepsis - strep vs Enterococcus 06/14 bottles 07/24 Murmur - maybe related to anemia fever - better lung infiltrates PCN allergy - long time ago - has had amoxicillin Anemia Plan Plan of Care ECHO Repeat Blood cults in am Cont meropenem and cont Vanc f/u labs in am F/u blood and urine cults PRBCs today DESMOND BERRIOS MD July 25, 2018 11:14
[2018-07-25] MEDS: ACETAMINOPHEN 325 MG TABLET. PO PRN (11:17)
--- NOTE | 2018-07-25 13:11 | PDOC ---
Subjective: Subjective: Says he feels the same and nothing's wrong and he doesn't even know why he's here and no one tells him anything. I asked him if he's going to eat his lunch tray - "probably not because I have no taste for anything." Denies pain, says had a couple small stools. Objective: Objective: D/w RN - drinks water, doesn't eat jello or other clear liquids, does take Miralax, has had a couple loose stools. Tmax 99.5. Vital Signs: Vital Signs Date Time Temp Pulse Resp B/P (MAP) Pulse Ox O2 Delivery O2 Flow Rate FiO2 07/25/18 11:40 99.1 80 16 116/47 99.1 07/25/18 11:00 92 Room Air Labs: Laboratory Tests Test 07/25/18 03:55 White Blood Count 5.5 x10^3/uL Red Blood Count 3.34 x10^6/uL Hemoglobin 6.5 g/dL Hematocrit 21.0 % Mean Corpuscular Volume 63 fL Mean Corpuscular Hemoglobin 20 pg Mean Corpuscular Hemoglobin Concent 31 g/dL Red Cell Distribution Width 18.8 % Platelet Count 310 x10^3/uL Sodium Level 136 mmol/L Potassium Level 3.2 mmol/L Chloride Level 103 mmol/L Carbon Dioxide Level 22 mmol/L Anion Gap 11 Blood Urea Nitrogen 4 mg/dL Creatinine 0.6 mg/dL Estimated GFR (Cockcroft-Gault) 127.4 Glucose Level 301 mg/dL Calcium Level 8.2 mg/dL BLOOD CULTURE Final GRAM POSITIVE COCCI IN CHAINS IN 4 OF 4 BOTTLES (2 SETS DRAWN). CALLED TO SAHIL ADLER ON 5N 07/25/18 AT 0823 BY Alden STANTON. CULTURES HAVE BEEN SENT TO LAB [facility] FOR FURTHER IDENTIFICATION. Imaging: RUQ US Impression: 1. There is nonspecific gallbladder wall thickening about 0.4 cm, no demonstrable intraluminal abnormality of the gallbladder. There is no biliary ductal dilatation. PE: GEN: NAD - was sleeping, blood transfusing LUNGS: CTAB HEART: RRR ABD: S/ND/NT NEURO/PSYCH: A & O 3 A/P: JAMILA Anorexia GPC bacteremia -- D/w Dr. Feliciano - scopes might be helpful pending final BC results. He didn't want to prep on Monday - still not sure he'd cooperate. Reviewed w/ Dr. Pimentel (covering for Dr. Stockton today) - without overt bleeding and with bacteremia, consider waiting on 'scopes for now but would defer to Dr. Stockton. Reviewed w/ Dr. Stockton - will tentatively plan on scopes Monday afternoon w/ Dulcolax and Mag Citrate prep tomorrow. D/w [place]. ANGELINA BHAT July 25, 2018 13:10
--- NOTE | 2018-07-25 15:20 | NUR ---
CHRISTELLE following pt. Pt has been accepted at [facility] pending IV abx needs. Tamela reported as long as Pt is not on expensive IV abx they will accommodate pt. CHRISTELLE discussed at this time there is no recommendation for [facility] IV abx. CHRISTELLE left a voice mail to pt's daughter, Jeannette regarding plan.
--- NOTE | 2018-07-25 15:46 | CARD ---
MR#: [id number] Date of Study: 07/25/2018 Ordering Physician: DESMOND BERROIS, Referring Physician: LORI SIMENTAL, Tech: Romelia Hoffman APPROVED REPORT EXAM: Two-dimensional and M-mode echocardiogram with Doppler and color Doppler. Other Information Quality : Good INDICATION SOB 2D DIMENSIONS RVDd2.9 (2.9-3.5cm)Left Atrium(2D)4.1 (1.6-4.0cm) IVSd1.2 (0.7-1.1cm)Aortic Root(2D)3.0 (2.0-3.7cm) LVDd5.3 (3.9-5.9cm)LVOT Diameter2.0 (1.8-2.4cm) PWd1.0 (0.7-1.1cm)LVDs2.7 (2.5-4.0cm) FS (%) 49.1 %SV106.4 ml Aortic Valve AoV Peak Eladio.214.5cm/sAoV VTI48.6cm AO Peak GR.18.4mmHgLVOT VTI 19.07cm AO Mean GR.12mmHgAI P 1/2 Azeb5zk Mitral Valve MV E Udbrxyqu463.4cm/sMV DECEL AUYP087kj MV A Utbhxktl84.7cm/sE/A Ratio1.4 TDI Lateral E' P. V8.62cm/sMedial E' P. V8.75cm/s E/Lateral E'12.0E/Medial E'11.8 Tricuspid Valve TR P. Fwatdplc699kp/sRAP BBLAVHVR2swAo TR Peak Gr.09vxFoZGOV17kaNf Pulmonary Vein S1 Veadgwzb32.8cm/sS2 Qvgqorex97.80cm/s D2 Xtyhdbpu51.8cm/sPVa kgypqkhu754csxj LEFT VENTRICLE The left ventricle is normal size. There is mild concentric left ventricular hypertrophy. The left ve ntricular systolic function is normal and the ejection fraction is within normal range. The Ejection Fraction is 55-60%. There is normal LV segmental wall motion. Transmitral Doppler flow pattern is Gra de II-pseudonormal filling dynamics. RIGHT VENTRICLE The right ventricle is normal size. There is normal right ventricular wall thickness. The right ventr icular systolic function is normal. ATRIA The left atrium is mildly dilated. The right atrium size is normal. The interatrial septum is intact with no evidence for an atrial septal defect or patent foramen ovale as noted on 2-D or Doppler imagi ng. AORTIC VALVE The aortic valve is mildly to moderately calcified. Doppler and Color Flow revealed no significant ao rtic regurgitation. There is no significant aortic valvular stenosis. MITRAL VALVE The mitral valve is thickened but opens well. There is no evidence of mitral valve prolapse. There is no mitral valve stenosis. Doppler and Color-flow revealed trace to mild mitral regurgitation. TRICUSPID VALVE The tricuspid valve is normal in structure and function. Doppler and Color Flow revealed trace to mil d tricuspid regurgitation with an estimated PAP of 36 mmHg. There is no tricuspid valve prolapse or v egetation. There is no tricuspid valve stenosis. PULMONIC VALVE The pulmonic valve is not well visualized. Doppler and Color Flow revealed no pulmonic valvular regur gitation. GREAT VESSELS The aortic root is normal in size. The IVC is normal in size and collapses >50% with inspiration. PERICARDIAL EFFUSION There is a small circumferential pericardial effusion with no hemodynamic significance. Critical Notification Critical Value: No <Conclusion> The left ventricle is normal size. The left ventricular systolic function is normal and the ejection fraction is within normal range. The Ejection Fraction is 55-60%. There is mild concentric left ventricular hypertrophy. There is no significant aortic valvular stenosis. Doppler and Color Flow revealed no significant aortic regurgitation. Doppler and Color-flow revealed trace to mild mitral regurgitation. Doppler and Color Flow revealed trace to mild tricuspid regurgitation with an estimated PAP of 36 mmH g. There is a small circumferential pericardial effusion with no hemodynamic significance. Signed by : Yasmany Baeza MD Electronically Approved : 07/25/2018 15:45:59
[2018-07-25] MEDS ORDERED: IRON SUCROSE COMPLEX 200 MG in IV NORMAL SALINE 100ML 100 ML IV ONE (16:00)
[2018-07-25] MEDS ORDERED: DEXTROSE 50% 25 GM / 50ML DISP.SYRIN. IV PRN (16:15)
[2018-07-25] MEDS ORDERED: POTASSIUM CHLORIDE 20 MEQ TABLET.ER. PO ONE (16:15)
[2018-07-25] MEDS: INSULIN LISPRO 300 UNITS/3 ML INSULN.PEN. SQ SCH (17:00)
[2018-07-25 18:31] LABS: HEMATOCRIT 24.6 % (39.0-53.0); HEMOGLOBIN 7.8 g/dL (13.0-17.5)
[2018-07-25] MEDS: MIRTAZAPINE 7.5 MG TABLET. PO SCH (21:56)
[2018-07-25] MEDS: DONEPEZIL HCL 5 MG TABLET. PO SCH (21:57)
[2018-07-26] MEDS: MEROPENEM 500 MG in IV NORMAL SALINE 50ML 50 ML IV SCH ×4 (00:27→18:06)
[2018-07-26 01:53] LABS: CALCIUM 8.6 mg/dL (8.5-10.1); CREATININE 0.6 mg/dL (0.7-1.3); GFR 127.4; POTASSIUM 3.8 mmol/L (3.5-5.1)
[2018-07-26 01:58] LABS: VANC TR 3.8 mcg/mL (10.0-20.0)
[2018-07-26] MEDS: VANCOMYCIN 1 GM in IV NORMAL SALINE 250ML 250 ML IV SCH ×3 (02:00→16:39)
[2018-07-26] MEDS: VANCOMYCIN PER PHARMACY MC PRN (02:20)
--- NOTE | 2018-07-26 02:26 | NUR ---
Pharmacy Vancomycin Dosing Note S: Consulted to monitor and dose vancomycin started 07/24/18. O: ELEANOR MAURICIO is a 87 year old M with Empiric, . Other Antibiotics: MEROPENEM 500MG IV Q6H LABS: Last BUN: 4 Last Creatinine: 0.6 Creatinine Clearance: 47 mL/min Last WBC: 5.5 Last Procalcitonin: Tmax (past 24 hours): 102.9 Microbiology: I/O: Drug Levels: Last Trough level: 3.8 on 07/26/18 at 0125 Last dose given 07/25/18 at 0207 Vancomycin Dosing: Dosing Weight: Actual Target Trough: 15-20 A: Based on: Trough(L), Actual Wt and CrCl P: 1. 07/26/18 0230 Increase Vancomycin 1000 mg IV q12h 2. Follow up Trough level on 07/27/18 at 0200 3. Pharmacy will continue to monitor, follow and adjust therapy as needed. PHYLLIS SHAVER RPH, 07/26/18 0230 Signed: 07/26/18 at 0228 by PHYLLIS SHAVER RPH PHA
[2018-07-26 02:41] LABS: HEMATOCRIT 25.6 % (39.0-53.0); HEMOGLOBIN 7.9 g/dL (13.0-17.5); RED BLOOD COUNT 3.86 x10^6/uL (4.30-5.70); RED CELL DISTRIBUTION WIDTH 21.7 % (11.5-14.5); WHITE BLOOD COUNT 5.7 x10^3/uL (4.0-11.0)
[2018-07-26 03:00] VITALS: BP 126/62
--- NOTE | 2018-07-26 03:13 | PN ---
DATE: 07/25/2018 SUBJECTIVE: The patient is resting, slightly propped up in bed, in no apparent distress. On questioning him, he denied any complaint except that he is hungry. Unfortunately, dropped his H and H this morning to 6.5 and 21 and planned upper and lower GI endoscopy was postponed. He did receive 1 unit of packed RBCs. PHYSICAL EXAMINATION: GENERAL: When I saw him this afternoon, he looked pale, no jaundice, cyanosis, or thyromegaly. No jugular venous distension. No lower limb edema. VITAL SIGNS: His heart rate was 64, blood pressure was 114/56, temperature was 98.5, respiratory rate was 16, and oxygen saturation was 95%. HEAD, EYES, EARS, NOSE AND THROAT: Normocephalic, atraumatic. NECK: Supple. HEART: Showed normal first and second sounds. No gallop, rub or murmur. CHEST: Clear to auscultation. No crepitation or rhonchi. ABDOMEN: Distended, soft, nontender. NEUROLOGIC: He was hard of hearing, but otherwise all his cranial nerves were intact. He moves extremities without difficulty. His intake over the last 24 hours was 1500, no output was recorded. LABORATORY DATA: His lab work this morning showed a white cell count 5500, hemoglobin 6.5, hematocrit 21, MCV 63 and platelet count 310,000. His chemistry showed a serum sodium 136, potassium 3.2, chloride 103, bicarbonate 22, anion gap of 11, BUN 4, creatinine 0.6, estimated GFR was 127 mL per minute. His glucose was 301 and his calcium was 8.2. ASSESSMENT: 1. Altered mental status. 2. He was found to have hyponatremia. 3. Severe microcytic hypochromic anemia with low iron stores. 4. He has also elevated inflammatory markers including sed rate and CRP. 5. He was seen in consultation by the superintendent house and he was actually planned to have upper and lower GI endoscopy; however, he dropped his H and H. 6. He also spiked his temperature and he became septic and developed Streptococcus versus Enterococcus in 4/4 bottles and has also lung infiltrate. He was seen in consultation by the Infectious Disease, continued his meropenem and vancomycin. He was also seen by the bill hiker, has had an echocardiogram that showed that his left ventricular size is normal, left ventricular systolic function is normal and ejection fraction is within normal range. The ejection fraction is 55-60%. He has mild concentric left ventricular hypertrophy. There is no significant aortic valvular stenosis. Doppler and color flow revealed no significant aortic regurgitation. He has trace to mild mitral regurgitation, revealed [id number] tricuspid regurgitation and an estimated pulmonary artery pressure of 36 mmHg. There is a small circumferential pericardial effusion with no hemodynamic significance. He has also hypokalemia. PLAN: My plan is to replenish his potassium. I did start him also on Venofer, replete his iron stores and apparently he is scheduled for upper and lower GI endoscopy on Monday. LORI SIMENTAL MD DR: CHIDI/chiqui JOB#: [id number] / [id number]
[2018-07-26 07:00] VITALS: BP 147/70
[2018-07-26] MEDS: IV DEXTROSE 5% - 0.9 % NACL 1,000 ML IV SCH (07:15)
[2018-07-26] MEDS: INSULIN LISPRO 300 UNITS/3 ML INSULN.PEN. SQ SCH ×3 (08:00→17:00)
[2018-07-26] MEDS: DOCUSATE SODIUM 100 MG CAPSULE. PO SCH ×2 (08:27→21:24)
[2018-07-26] MEDS: MULTIVITAMIN I-VITE TABLET. PO SCH ×2 (08:28→21:24)
[2018-07-26] MEDS: PANTOPRAZOLE 40 MG TABLET.DR. PO SCH (08:28)
[2018-07-26] MEDS: CARVEDILOL 6.25 MG TABLET. PO SCH ×2 (08:28→18:06)
[2018-07-26] MEDS: POTASSIUM CHLORIDE 10 MEQ TABLET.ER. PO SCH (08:28)
[2018-07-26] MEDS: amLODIPine BESYLATE 5 MG TABLET PO SCH (08:28)
[2018-07-26] MEDS: MULTIVITAMIN with MINERAL TABLET. PO SCH (08:28)
[2018-07-26] MEDS: OXYBUTYNIN CHLORIDE 5 MG TABLET PO SCH ×2 (08:29→21:24)
[2018-07-26] MEDS: LACTOBACILLUS RHAMNOSUS GG 1 CAPSULE. PO SCH ×2 (08:29→21:24)
[2018-07-26] MEDS: LISINOPRIL 20 MG TABLET PO SCH (08:29)
[2018-07-26] MEDS: POLYETHYLENE GLYCOL 3350 17 GM PACKET. PO SCH ×2 (08:29→21:24)
[2018-07-26] MEDS: buPROPion XL 150 MG TAB.ER.24H. PO SCH (08:29)
[2018-07-26] MEDS ORDERED: BISACODYL 5 MG TABLET.DR. PO ONE ×2 (09:00→11:00)
[2018-07-26] MEDS ORDERED: MAGNESIUM CITRATE 296 ML SOLUTION. PO ONE (10:00)
--- NOTE | 2018-07-26 10:07 | PDOC ---
Infectious Disease Note Subjective Subjective Doing ok. No complaints. No F/C/S/N/V/D/SOA/Rash/dysuria Vital Sign Vital Signs Vital Signs Date Time Temp Pulse Resp B/P (MAP) Pulse Ox O2 Delivery O2 Flow Rate FiO2 07/26/18 08:29 74 147/70 07/26/18 07:00 99.3 17 93 99.3 07/25/18 20:00 Room Air Physical Exam PHYSICAL EXAM CONSTITUTIONAL: He is lying down in bed. He is fairly comfortable this morning. He is in no acute distress. He is undergoing beginning of an ultrasound on his abdomen. HEENT: He had normal conjunctivae. Oral cavity, pharynx was clear. No thrush. NECK: Supple, no JVD. LUNGS: Clear to auscultation. Decreased in the bases, no wheeze. HEART: S1, S2. 1-2/6 today ABDOMEN: Soft, nontender, nondistended with positive bowel sounds. EXTREMITIES: Without clubbing, cyanosis nor gross edema. SKIN: Warm to touch without generalized rash. NEUROLOGIC: He moves all extremities without complications. Answers questions appropriately. PSYCHIATRIC: Affect was pleasant Labs Lab Laboratory Tests Test 07/25/18 17:01 07/25/18 17:58 07/25/18 21:32 07/26/18 01:25 Glucose (Fingerstick) 117 mg/dL (70-99) 143 mg/dL (70-99) Hemoglobin 7.8 g/dL (13.0-17.5) 7.9 g/dL (13.0-17.5) Hematocrit 24.6 % (39.0-53.0) 25.6 % (39.0-53.0) White Blood Count 5.7 x10^3/uL (4.0-11.0) Red Blood Count 3.86 x10^6/uL (4.30-5.70) Mean Corpuscular Volume 67 fL (79-100) Mean Corpuscular Hemoglobin 21 pg (25-35) Mean Corpuscular Hemoglobin Concent 31 g/dL (31-37) Red Cell Distribution Width 21.7 % (11.5-14.5) Platelet Count 328 x10^3/uL (140-400) Sodium Level 135 mmol/L (136-145) Potassium Level 3.8 mmol/L (3.5-5.1) Chloride Level 101 mmol/L (98-107) Carbon Dioxide Level 25 mmol/L (21-32) Anion Gap 9 (6-14) Blood Urea Nitrogen 4 mg/dL (8-26) Creatinine 0.6 mg/dL (0.7-1.3) Estimated GFR (Cockcroft-Gault) 127.4 Glucose Level 114 mg/dL (70-99) Calcium Level 8.6 mg/dL (8.5-10.1) Procalcitonin < 0.10 ng/mL (0.00-0.10) Vancomycin Level Trough 3.8 mcg/mL (10.0-20.0) Vancomycin Last Dose Date Vancomycin Last Dose Time Test 07/26/18 07:24 Glucose (Fingerstick) 110 mg/dL (70-99) Micro ECHO 07/25 The left ventricle is normal size. The left ventricular systolic function is normal and the ejection fraction is within normal range. The Ejection Fraction is 55-60%. There is mild concentric left ventricular hypertrophy. There is no significant aortic valvular stenosis. Doppler and Color Flow revealed no significant aortic regurgitation. Doppler and Color-flow revealed trace to mild mitral regurgitation. Doppler and Color Flow revealed trace to mild tricuspid regurgitation with an estimated PAP of 36 mmHg. There is a small circumferential pericardial effusion with no hemodynamic significance Abd U/S 07/24 Impression: 1. There is nonspecific gallbladder wall thickening about 0.4 cm, no demonstrable intraluminal abnormality of the gallbladder. There is no biliary ductal dilatation. CT abd/pel 07/23 IMPRESSION: 1. Mild bilateral perinephric fat stranding, nonspecific could be due to medical renal disease.. 2. Mild enhancement of the gallbladder wall. Ultrasound right upper quadrant can be considered to exclude cholecystitis. Objective Assessment sepsis - strep vs Enterococcus / bottles 07/24 Murmur - maybe related to anemia fever - better lung infiltrates PCN allergy - long time ago - has had amoxicillin Anemia Plan Plan of Care ECHO - reviewed Repeat Blood cults drawn this am Cont meropenem and cont Vanc f/u labs in am F/u blood and urine cults (no bacteria on UA) DESMOND BERRIOS MD July 26, 2018 10:07
--- NOTE | 2018-07-26 10:09 | PDOC ---
Subjective: Subjective: "I don't know what they want me to do." I asked about Gatorade - "I can't drink that." Objective: Objective: D/w RN - drank a little of Gatorade w/ Miralax prep yesterday but not much. He says his stools are "clearing up" - no stools yet today, but had a couple yesterday. Has been on clears throughout admission other than some pudding last night. Plans for Mag Citrate of Dulcolax today. Tmax 99.3. Vital Signs: Vital Signs Date Time Temp Pulse Resp B/P (MAP) Pulse Ox O2 Delivery O2 Flow Rate FiO2 07/26/18 08:29 74 147/70 07/26/18 07:00 99.3 17 93 99.3 07/25/18 20:00 Room Air Labs: Laboratory Tests Test 07/25/18 17:01 07/25/18 17:58 07/25/18 21:32 07/26/18 01:25 Glucose (Fingerstick) 117 mg/dL 143 mg/dL Hemoglobin 7.8 g/dL 7.9 g/dL Hematocrit 24.6 % 25.6 % White Blood Count 5.7 x10^3/uL Red Blood Count 3.86 x10^6/uL Mean Corpuscular Volume 67 fL Mean Corpuscular Hemoglobin 21 pg Mean Corpuscular Hemoglobin Concent 31 g/dL Red Cell Distribution Width 21.7 % Platelet Count 328 x10^3/uL Sodium Level 135 mmol/L Potassium Level 3.8 mmol/L Chloride Level 101 mmol/L Carbon Dioxide Level 25 mmol/L Anion Gap 9 Blood Urea Nitrogen 4 mg/dL Creatinine 0.6 mg/dL Estimated GFR (Cockcroft-Gault) 127.4 Glucose Level 114 mg/dL Calcium Level 8.6 mg/dL Procalcitonin < 0.10 ng/mL Vancomycin Level Trough 3.8 mcg/mL Vancomycin Last Dose Date Vancomycin Last Dose Time Test 07/26/18 07:24 Glucose (Fingerstick) 110 mg/dL PE: GEN: NAD - was asleep LUNGS: room air HEART: RRR +murm ABD: NABS, S/ND/NT NEURO/PSYCH: forgetful A/P: JAMILA - Hgb improved post transfusion, no obvious bleeding GPC bacteremia -- Plans for EGD and colonoscopy tomorrow afternoon after prep - hopefully he'll cooperate this time - family is supportive, wonder if they would be helpful during prep. ANGELINA BHAT July 26, 2018 10:09
[2018-07-26 11:00] VITALS: BP 147/70
--- NOTE | 2018-07-26 11:23 | NUR ---
SW following pt. Spoke with Pt's daughter and she is agreeable with dc plan to [facility].
[2018-07-26] MEDS ORDERED: IRON SUCROSE COMPLEX 500 MG in IV NORMAL SALINE 250ML 250 ML IV ONE (13:00)
[2018-07-26 15:00] VITALS: BP 125/58
[2018-07-26 19:00] VITALS: BP 144/78
[2018-07-26 21:08] LABS: HEMATOCRIT 31.8 % (39.0-53.0); HEMOGLOBIN 9.6 g/dL (13.0-17.5)
[2018-07-26] MEDS: DONEPEZIL HCL 5 MG TABLET. PO SCH (21:24)
[2018-07-26] MEDS: MIRTAZAPINE 7.5 MG TABLET. PO SCH (21:24)
--- NOTE | 2018-07-26 21:44 | PN ---
DATE: 07/26/2018 SUBJECTIVE: The patient is resting, slightly propped up in bed, in no apparent distress. He is awake, alert. On questioning him, he said that he is bored, stiff. Denied any complaint, in particular denied any nausea or vomiting. Denied any diarrhea or constipation. Denied any chills, rigors or fever. He did receive 1 unit of packed RBCs yesterday and also IV Venofer. His H and H this morning was 7.9 and 25.6. PHYSICAL EXAMINATION: GENERAL: When I examined him this morning, he looked pale, but no jaundice, cyanosis or thyromegaly. No jugular venous distension. No lower limb edema. VITAL SIGNS: Her heart rate was 74, blood pressure was 147/70, temperature was 99.3, respiratory rate was 17 and oxygen saturation was 93% on room air. HEAD, EYES, EARS, NOSE AND THROAT: Showed normocephalic, atraumatic. NECK: Supple. HEART: Showed normal first and second sounds. No gallop, rub or murmur. CHEST: Clear to auscultation. No crepitation or rhonchi. ABDOMEN: Distended, soft, nontender. No guarding or rigidity. No organomegaly. All hernial orifices intact. Bowel sounds normal. NEUROLOGIC: He was awake, alert, responding appropriately. Cranial nerves intact. He moves extremities without difficulty. His intake over the last 24 hours was 320, no output was recorded. LABORATORY DATA: Her lab work this morning showed a white cell count 5700, hemoglobin 7.9, hematocrit 25.6, MCV 67 and platelet count 328,000. His chemistry showed a serum sodium 135, potassium 3.8, chloride 101, bicarbonate 25, anion gap of 9, BUN 4, creatinine 0.6, estimated GFR was 127 mL per minute. Her glucose 114, calcium was 8.6. ASSESSMENT: 1. Altered mental status, improved. 2. Hyponatremia, resolved. His serum sodium today 135. 3. Severe microcytic hypochromic anemia with low iron stores. 4. Also elevated inflammatory markers including sed rate and CRP. 5. He did spike his temperature and became septic, developed Streptococcus versus Enterococcus in 4/4 bottles and also has lung infiltrate. 6. He was seen in consultation by the Infectious Disease and he is now on meropenem, vancomycin. 7. His echocardiogram showed no evidence of any vegetation or valvular heart disease. 8. His blood cultures have grown gram-positive cocci in chains in all 4 bottles in the 2 sets collected. Plan is to obviously continue with the bowel preparation for scheduled colonoscopy tomorrow. Continue with the IV fluid, continue with antibiotic. I will order some more Venofer today to replenish his stores. LORI SIMENTAL MD DR: CHIDI/chiqui JOB#: [id number] / [id number]
[2018-07-26 23:00] VITALS: BP 122/51
[2018-07-27] MEDS: MEROPENEM 500 MG in IV NORMAL SALINE 50ML 50 ML IV SCH ×5 (00:01→23:46)
[2018-07-27] MEDS: IV DEXTROSE 5% - 0.9 % NACL 1,000 ML IV SCH ×2 (00:40→04:16)
[2018-07-27 02:32] LABS: CALCIUM 8.6 mg/dL (8.5-10.1); CREATININE 0.6 mg/dL (0.7-1.3); GFR 127.4; POTASSIUM 3.1 mmol/L (3.5-5.1)
[2018-07-27 02:35] LABS: BASO % 0 % (0-3); EOS # 0.1 x10^3/uL (0.0-0.7); EOS % 1 % (0-3); HEMOGLOBIN 8.7 g/dL (13.0-17.5); LYMPH # 0.7 x10^3/uL (1.0-4.8); LYMPH % 7 % (24-48); MEAN CORPUSCULAR HEMOGLOBIN 21 pg (25-35); MEAN CORPUSCULAR HGB CONC 31 g/dL (31-37); MEAN CORPUSCULAR VOLUME 67 fL (79-100); MONO # 0.7 x10^3/uL (0.0-1.1); MONO % 7 % (0-9); NEUT # 8.4 x10^3uL (1.8-7.7); NEUT % 85 % (31-73); PLATELET COUNT 347 x10^3/uL (140-400); RED BLOOD COUNT 4.22 x10^6/uL (4.30-5.70); RED CELL DISTRIBUTION WIDTH 21.5 % (11.5-14.5); WHITE BLOOD COUNT 9.9 x10^3/uL (4.0-11.0)
[2018-07-27 02:38] LABS: VANC TR 12.1 mcg/mL (10.0-20.0)
[2018-07-27] MEDS: VANCOMYCIN 1 GM in IV NORMAL SALINE 250ML 250 ML IV SCH ×3 (02:49→21:05)
[2018-07-27 03:00] VITALS: BP 128/54
[2018-07-27] MEDS: VANCOMYCIN PER PHARMACY MC PRN (03:45)
--- NOTE | 2018-07-27 03:47 | NUR ---
Pharmacy Vancomycin Dosing Note S: Consulted to monitor and dose vancomycin started 07/24/18. O: ELEANOR MAURICIO is a 87 year old M with Sepsis, STREPH VS ENTEROCOCCUS PER (ID CONSULT) 07/24 Other Antibiotics: MEROPENEM 500MG IV Q6H LABS: Last BUN: 4 Last Creatinine: 0.6 Creatinine Clearance: 47 mL/min Last WBC: 5.7 Last Procalcitonin: Tmax (past 24 hours): 102.9 Microbiology: I/O: <0.10 Drug Levels: Last Trough level: 12.1 on 07/27/18 at 0200 Last dose given 07/26/18 at 1639 Vancomycin Dosing: Dosing Weight: Actual Target Trough: 15-20 A: Based on: Trough(L), Actual Wt and CrCl P: . 07/27 0300 Increase Vancomycin 1000 mg IV q8h 2. Follow up Trough level on 07/27/18 at 1830 3. Pharmacy will continue to monitor, follow and adjust therapy as needed. PHYLLIS SHAVER RPH, 07/27/18 0347 Signed: 07/27/18 at 0348 by PHYLLIS SHAVER RPH PHA
[2018-07-27 07:00] VITALS: BP 166/75
[2018-07-27] MEDS ORDERED: IV RINGERS,LACTATED 1000ML 1,000 ML IV SCH (07:00)
[2018-07-27] MEDS ORDERED: MORPHINE SULFATE 2 MG/ML VIAL. IV PRN (07:00)
[2018-07-27] MEDS ORDERED: fentaNYL PF VIAL 100 MCG/2 ML VIAL IV PRN ×2 (07:00)
[2018-07-27] MEDS ORDERED: PROCHLORPERAZINE 10 MG/2 ML VIAL. IV PRN (07:00)
[2018-07-27] MEDS ORDERED: MAGNESIUM CITRATE 296 ML SOLUTION. PO ONE (07:00)
[2018-07-27] MEDS ORDERED: HYDROmorphone 2 MG/ML VIAL IV PRN (07:00)
[2018-07-27] MEDS ORDERED: BISACODYL 5 MG TABLET.DR. PO PRN (07:30)
[2018-07-27] MEDS: INSULIN LISPRO 300 UNITS/3 ML INSULN.PEN. SQ SCH ×3 (08:00→17:00)
--- NOTE | 2018-07-27 08:30 | NUR ---
CHRISTELLE updated Tamela at [facility] regarding Pt.
[2018-07-27] MEDS: DOCUSATE SODIUM 100 MG CAPSULE. PO SCH ×2 (09:00→21:00)
[2018-07-27] MEDS: POLYETHYLENE GLYCOL 3350 17 GM PACKET. PO SCH ×2 (09:00→21:04)
[2018-07-27] MEDS: POTASSIUM CL 40MEQ IN 0.9%NACL 1,000 ML IV SCH (09:31)
--- NOTE | 2018-07-27 10:04 | PDOC ---
Infectious Disease Note Subjective Subjective Doing ok. No complaints. No F/C/S/N/V/D/SOA/Rash/dysuria ROS ROS o/w neg Vital Sign Vital Signs Vital Signs Date Time Temp Pulse Resp B/P (MAP) Pulse Ox O2 Delivery O2 Flow Rate FiO2 07/27/18 07:00 97.6 71 18 166/75 (105) 98 Room Air 97.6 Physical Exam PHYSICAL EXAM CONSTITUTIONAL: He is lying down in bed. He is fairly comfortable this morning. He is in no acute distress. He is undergoing beginning of an ultrasound on his abdomen. HEENT: He had normal conjunctivae. Oral cavity, pharynx was clear. No thrush.hearing aides NECK: Supple, no JVD. LUNGS: Clear to auscultation. Decreased in the bases, no wheeze. HEART: S1, S2. 1-2/6 today ABDOMEN: Soft, nontender, nondistended with positive bowel sounds. EXTREMITIES: Without clubbing, cyanosis nor gross edema. SKIN: Warm to touch without generalized rash. NEUROLOGIC: He moves all extremities without complications. Answers questions appropriately. PSYCHIATRIC: Affect was pleasant Labs Lab Laboratory Tests Test 07/26/18 11:19 07/26/18 16:37 07/26/18 19:40 07/26/18 20:58 Glucose (Fingerstick) 124 mg/dL (70-99) 108 mg/dL (70-99) 145 mg/dL (70-99) Hemoglobin 9.6 g/dL (13.0-17.5) Hematocrit 31.8 % (39.0-53.0) Test 07/27/18 02:00 White Blood Count 9.9 x10^3/uL (4.0-11.0) Red Blood Count 4.22 x10^6/uL (4.30-5.70) Hemoglobin 8.7 g/dL (13.0-17.5) Hematocrit 28.0 % (39.0-53.0) Mean Corpuscular Volume 67 fL (79-100) Mean Corpuscular Hemoglobin 21 pg (25-35) Mean Corpuscular Hemoglobin Concent 31 g/dL (31-37) Red Cell Distribution Width 21.5 % (11.5-14.5) Platelet Count 347 x10^3/uL (140-400) Neutrophils (%) (Auto) 85 % (31-73) Lymphocytes (%) (Auto) 7 % (24-48) Monocytes (%) (Auto) 7 % (0-9) Eosinophils (%) (Auto) 1 % (0-3) Basophils (%) (Auto) 0 % (0-3) Neutrophils # (Auto) 8.4 x10^3uL (1.8-7.7) Lymphocytes # (Auto) 0.7 x10^3/uL (1.0-4.8) Monocytes # (Auto) 0.7 x10^3/uL (0.0-1.1) Eosinophils # (Auto) 0.1 x10^3/uL (0.0-0.7) Basophils # (Auto) 0.0 x10^3/uL (0.0-0.2) Sodium Level 135 mmol/L (136-145) Potassium Level 3.1 mmol/L (3.5-5.1) Chloride Level 102 mmol/L (98-107) Carbon Dioxide Level 22 mmol/L (21-32) Anion Gap 11 (6-14) Blood Urea Nitrogen 3 mg/dL (8-26) Creatinine 0.6 mg/dL (0.7-1.3) Estimated GFR (Cockcroft-Gault) 127.4 Glucose Level 137 mg/dL (70-99) Calcium Level 8.6 mg/dL (8.5-10.1) Vancomycin Level Trough 12.1 mcg/mL (10.0-20.0) Vancomycin Last Dose Date Vancomycin Last Dose Time Micro ECHO 07/25 The left ventricle is normal size. The left ventricular systolic function is normal and the ejection fraction is within normal range. The Ejection Fraction is 55-60%. There is mild concentric left ventricular hypertrophy. There is no significant aortic valvular stenosis. Doppler and Color Flow revealed no significant aortic regurgitation. Doppler and Color-flow revealed trace to mild mitral regurgitation. Doppler and Color Flow revealed trace to mild tricuspid regurgitation with an estimated PAP of 36 mmHg. There is a small circumferential pericardial effusion with no hemodynamic significance Abd U/S 07/24 Impression: 1. There is nonspecific gallbladder wall thickening about 0.4 cm, no demonstrable intraluminal abnormality of the gallbladder. There is no biliary ductal dilatation. CT abd/pel 07/23 IMPRESSION: 1. Mild bilateral perinephric fat stranding, nonspecific could be due to medical renal disease.. 2. Mild enhancement of the gallbladder wall. Ultrasound right upper quadrant can be considered to exclude cholecystitis. Objective Assessment sepsis - strep vs Enterococcus 06/14 bottles 07/24 - d/w lab ratna still no ID Murmur - maybe related to anemia fever - better lung infiltrates PCN allergy - long time ago - has had amoxicillin Anemia Plan Plan of Care ECHO - reviewed EGD/Colonoscopy today Repeat Blood cults drawn 07/26 Cont meropenem and cont Vanc f/u labs in am F/u blood and urine cults (no bacteria on UA) DESMOND BERRIOS MD July 27, 2018 10:04
[2018-07-27 11:00] VITALS: BP 131/77
[2018-07-27] MEDS ORDERED: PROPOFOL 60 ML IV ONE (14:37)
[2018-07-27 15:00] VITALS: BP 143/85
--- NOTE | 2018-07-27 15:11 | PDOC4 ---
PROCEDURE Procedure EGD and colonoscopy Anemia, weight loss Anesthesia with propofol Findings- mild esophagitis, Schatzki's ring (dilated), 6 cm HH, gastritis (bx) , normal duodenum (bx) severe colonic diverticulosis in sigmoid and desc colon. Normal mucosa except for melanosis- no polyps, ulcers or masses Plan- continue iron, consider evaluation of small bowel later BALJEET MURILLO MD July 27, 2018 15:11
[2018-07-27] MEDS: MULTIVITAMIN I-VITE TABLET. PO SCH ×2 (18:30→21:04)
[2018-07-27] MEDS: CARVEDILOL 6.25 MG TABLET. PO SCH ×2 (18:30→18:38)
[2018-07-27] MEDS: FERROUS SULFATE 325 MG TABLET. PO SCH (18:36)
[2018-07-27] MEDS: OXYBUTYNIN CHLORIDE 5 MG TABLET PO SCH ×2 (18:36→21:04)
[2018-07-27] MEDS: buPROPion XL 150 MG TAB.ER.24H. PO SCH (18:36)
[2018-07-27] MEDS: MULTIVITAMIN with MINERAL TABLET. PO SCH (18:36)
[2018-07-27] MEDS: LISINOPRIL 20 MG TABLET PO SCH (18:37)
[2018-07-27] MEDS: POTASSIUM CHLORIDE 10 MEQ TABLET.ER. PO SCH (18:37)
[2018-07-27] MEDS: PANTOPRAZOLE 40 MG TABLET.DR. PO SCH (18:37)
[2018-07-27] MEDS: LACTOBACILLUS RHAMNOSUS GG 1 CAPSULE. PO SCH ×2 (18:37→21:03)
[2018-07-27] MEDS: amLODIPine BESYLATE 5 MG TABLET PO SCH (18:38)
[2018-07-27 19:00] VITALS: BP 162/79
[2018-07-27] MEDS: DONEPEZIL HCL 5 MG TABLET. PO SCH (20:13)
[2018-07-27] MEDS: MIRTAZAPINE 7.5 MG TABLET. PO SCH (20:14)
--- NOTE | 2018-07-27 22:03 | PN ---
DATE: 07/27/2018 SUBJECTIVE: The patient is an 87-year-old male patient who was transferred from [facility] because of severe anemia. Unfortunately, he spiked his temperature and his upper and lower GI endoscopy has been postponed multiple times. He dropped his H and H and received 1 unit of packed RBCs. I did also treat him with IV Venofer and received a total of 700 mg so far. When I saw him this morning, he was resting, slightly propped up, sleeping comfortably, in no apparent distress. On questioning him, he denied any complaint except that he is bored. PHYSICAL EXAMINATION: GENERAL: On examining him, he looked pale, no jaundice, cyanosis, or thyromegaly. No jugular venous distension. No lower limb edema. VITAL SIGNS: His heart rate was 71, blood pressure was 166/75, temperature was 97.6, respiratory rate was 18 and oxygen saturation was 98%. The rest of clinical examination is stable. His intake was 2445, output was 150. LABORATORY DATA: As of this morning, his white cell count was 9900, hemoglobin 8.7, hematocrit 28, MCV 67 and platelet count of 347,000. His chemistry showed a serum sodium 135, potassium 3.1, chloride 102, bicarbonate 22, anion gap of 11, BUN 3, creatinine 0.6, estimated GFR was 127, blood sugar was 137 and calcium was 8.7. His influenza A and B were negative. His blood culture has grown gram-positive cocci in 4/4 bottles. The identification and sensitivity is still pending at the time of this dictation. ASSESSMENT: 1. Altered mental status, improving. 2. Hyponatremia, resolved. His most recent serum sodium is up to 135. 3. Severe microcytic hypochromic anemia with low iron stores. 4. Elevated inflammatory markers including sed rate and CRP. 5. He did spike his temperature and became septic, developed Streptococcus versus Enterococcus infection in 4/4 bottles. Has also lung infiltrates, the identification and sensitivity is still pending at the time of this dictation. 6. Hypokalemia, for which I changed IV fluid to normal saline with 40 mEq of potassium chloride. 7. His echocardiogram showed no evidence of vegetation or valvular heart disease. PLAN: Continue with IV fluid in the form of normal saline with 40 mEq of potassium chloride to replenish his potassium and sodium. Continue with IV antibiotic. Hopefully, we will get his upper and lower GI endoscopy today. LORI SIMENTAL MD DR: CHIDI/chiqui JOB#: [id number] / [id number]
[2018-07-27 23:00] VITALS: BP 148/76
[2018-07-28] VITALS (7 sets, daily range): BP systolic 133–162; BP diastolic 65–79
[2018-07-28 02:55] LABS: VANC TR 21.2 mcg/mL (10.0-20.0)
[2018-07-28 03:13] LABS: HEMATOCRIT 28.8 % (39.0-53.0); HEMOGLOBIN 8.9 g/dL (13.0-17.5)
[2018-07-28 03:30] LABS: CALCIUM 8.7 mg/dL (8.5-10.1); CREATININE 0.5 mg/dL (0.7-1.3); GFR 157.3; POTASSIUM 3.2 mmol/L (3.5-5.1)
[2018-07-28] MEDS: VANCOMYCIN 1 GM in IV NORMAL SALINE 250ML 250 ML IV SCH (03:54)
--- NOTE | 2018-07-28 03:54 | NUR ---
VANCO TROUGH 21.2, 0300 DOSE HELD PER [facility] PHARMACIST.
[2018-07-28] MEDS: POTASSIUM CL 40MEQ IN 0.9%NACL 1,000 ML IV SCH ×2 (03:58→11:40)
[2018-07-28] MEDS: VANCOMYCIN PER PHARMACY MC PRN ×2 (06:25→11:23)
[2018-07-28] MEDS: MEROPENEM 500 MG in IV NORMAL SALINE 50ML 50 ML IV SCH ×3 (06:25→18:05)
--- NOTE | 2018-07-28 06:46 | NUR ---
Pharmacy Vancomycin Dosing Note S: Consulted to monitor and dose vancomycin started 07/24/18. O: ELEANOR MAURICIO is a 87 year old M with Sepsis, STREPH VS ENTEROCOCCUS PER (ID CONSULT) . Other Antibiotics: MEROPENEM 500MG IV Q6H LABS: Last BUN: 4 Last Creatinine: 0.6 Creatinine Clearance: 47 mL/min Last WBC: 5.7 Last Procalcitonin: Tmax (past 24 hours): 102.9 Microbiology: I/O: <0.10 Drug Levels: Last Trough level: 21.2 on 07/28/18 at 0205 Last dose given 07/27/18 at 2105 Vancomycin Dosing: Dosing Weight: Actual Target Trough: 15-20 A: Based on: Trough(H), Actual Wt and CrCl P: 1. 07/28/18 0300 Vancomycin 1000 mg IV q8h HELD 2. Follow up Trough level on 07/28/18 at 0900 3. Pharmacy will continue to monitor, follow and adjust therapy as needed. PHYLLIS SHAVER RPH, 07/28/18 0646 Signed: 07/28/18 at 0648 by PHYLLIS SHAVER RPH PHA Signed: 07/28/18 at 0648 by PHYLLIS SAMSKEY, RPH PHA
[2018-07-28] MEDS: INSULIN LISPRO 300 UNITS/3 ML INSULN.PEN. SQ SCH ×3 (08:00→17:00)
[2018-07-28] MEDS: POLYETHYLENE GLYCOL 3350 17 GM PACKET. PO SCH ×2 (09:23→22:18)
[2018-07-28] MEDS: MULTIVITAMIN with MINERAL TABLET. PO SCH (09:25)
[2018-07-28] MEDS: LACTOBACILLUS RHAMNOSUS GG 1 CAPSULE. PO SCH ×2 (09:25→22:17)
[2018-07-28] MEDS: FERROUS SULFATE 325 MG TABLET. PO SCH ×2 (09:25→17:10)
[2018-07-28] MEDS: LISINOPRIL 20 MG TABLET PO SCH (09:25)
[2018-07-28] MEDS: PANTOPRAZOLE 40 MG TABLET.DR. PO SCH (09:25)
[2018-07-28] MEDS: POTASSIUM CHLORIDE 10 MEQ TABLET.ER. PO SCH (09:25)
[2018-07-28] MEDS: buPROPion XL 150 MG TAB.ER.24H. PO SCH (09:26)
[2018-07-28] MEDS: CARVEDILOL 6.25 MG TABLET. PO SCH ×2 (09:26→17:10)
[2018-07-28] MEDS: amLODIPine BESYLATE 5 MG TABLET PO SCH (09:26)
[2018-07-28] MEDS: MULTIVITAMIN I-VITE TABLET. PO SCH ×2 (09:27→22:17)
[2018-07-28] MEDS: OXYBUTYNIN CHLORIDE 5 MG TABLET PO SCH ×2 (09:27→22:18)
[2018-07-28] MEDS: DOCUSATE SODIUM 100 MG CAPSULE. PO SCH ×2 (09:27→22:17)
[2018-07-28 09:41] LABS: VANC TR 12.4 mcg/mL (10.0-20.0)
[2018-07-28] MEDS ORDERED: VANCOMYCIN 1.25 GM in IV NORMAL SALINE 250ML 250 ML IV SCH (12:00)
--- NOTE | 2018-07-28 13:39 | PDOC ---
Infectious Disease Note Subjective Subjective Finds the food 'lousy' Otherwise feeling alright Denies F/C/S/N/V/D/SOA ROS ROS per HPI Vital Sign Vital Signs Vital Signs Date Time Temp Pulse Resp B/P (MAP) Pulse Ox O2 Delivery O2 Flow Rate FiO2 07/28/18 11:00 98.6 85 22 162/76 (104) 99 Room Air 98.6 07/28/18 08:00 2.0 Physical Exam PHYSICAL EXAM GENERAL: Propped up in bed, alert, relaxed appearance HEENT: Normal conjunctivae. Oral cavity, pharynx was clear. No thrush NECK: Supple, no JVD. LUNGS: Clear to auscultation. HEART: S1, S2. 1-2/6 today ABDOMEN: Soft, nontender, nondistended with positive bowel sounds. EXTREMITIES: Without clubbing, cyanosis nor gross edema. SKIN: Warm to touch without generalized rash. NEUROLOGIC: Alert and responding appropriately PIV Labs Lab Laboratory Tests Test 07/27/18 14:45 07/27/18 17:04 07/28/18 02:00 07/28/18 02:05 Hemoglobin 9.0 g/dL (13.0-17.5) 8.9 g/dL (13.0-17.5) Hematocrit 29.0 % (39.0-53.0) 28.8 % (39.0-53.0) Glucose (Fingerstick) 103 mg/dL (70-99) Sodium Level 136 mmol/L (136-145) Potassium Level 3.2 mmol/L (3.5-5.1) Chloride Level 102 mmol/L (98-107) Carbon Dioxide Level 23 mmol/L (21-32) Anion Gap 11 (6-14) Blood Urea Nitrogen 2 mg/dL (8-26) Creatinine 0.5 mg/dL (0.7-1.3) Estimated GFR (Cockcroft-Gault) 157.3 Glucose Level 98 mg/dL (70-99) Calcium Level 8.7 mg/dL (8.5-10.1) Vancomycin Level Trough 21.2 mcg/mL (10.0-20.0) Vancomycin Last Dose Date [id number] Vancomycin Last Dose Time 1100 Test 07/28/18 08:02 07/28/18 09:00 07/28/18 11:09 Glucose (Fingerstick) 98 mg/dL (70-99) 92 mg/dL (70-99) Vancomycin Level Trough 12.4 mcg/mL (10.0-20.0) Vancomycin Last Dose Date 07/27/18 Vancomycin Last Dose Time 2105 S/P EGD and colonoscopy Findings- mild esophagitis, Schatzki's ring (dilated), 6 cm HH, gastritis (bx) , normal duodenum (bx) severe colonic diverticulosis in sigmoid and desc colon. Normal mucosa except for melanosis- no polyps, ulcers or masses Micro 07/26/18 Blood Culture - Preliminary, Resulted NO GROWTH AFTER 2 DAYS 07/24. BLD CULT RESULT 1 Preliminary Streptococcus salivarius Objective Assessment Sepsis with Strep salivarius bacteremia (4 of 4 bottles), Repeat BC 07/26 neg so far s/p EGD and colonoscopy, 07/27. mild esophagitis, schatzki's ring (dilated) and severe colonic diverticulosis Murmur - maybe related to anemia Fever - better Lung infiltrates PCN allergy - long time ago - has had amoxicillin Anemia Plan Plan of Care Cont meropenem Continue vanc for now Trough 12.4 Probiotics Monitor labs/temp f/u Patient seen, examined, He is without complaints I agree with above assessment and plan formulated by BELTRAN GERONIMO APRN July 28, 2018 13:39 CHARLOTTE JERNIGAN MD July 28, 2018 14:49
[2018-07-28] MEDS: POTASSIUM CHLORIDE 20 MEQ TABLET.ER. PO SCH ×2 (14:29→22:18)
[2018-07-28] MEDS: DONEPEZIL HCL 5 MG TABLET. PO SCH (22:17)
[2018-07-28] MEDS: MIRTAZAPINE 7.5 MG TABLET. PO SCH (22:18)
--- NOTE | 2018-07-28 22:26 | PN ---
DATE: 07/28/2018 SUBJECTIVE: The patient is resting slightly propped up in bed, in no apparent respiratory distress, sleepy, but arousable. On questioning him, he denied any complaint. Nursing staff did not voice any concern and stated that he had an uneventful night. He has not eaten much of his breakfast this morning. He has had his upper and lower GI endoscopy and basically, he was found to have mild esophagitis with Schatzki ring dilated at 6 cm of water. He has gastritis from which a biopsy was taken, normal duodenum and that was biopsied, has severe colonic diverticulosis in sigmoid and descending colon, normal mucosa except for melanosis. No polyps or masses. The director phone recommended to continue with iron supplement and evaluate small bowel later. His blood culture showed growth of Streptococcus salivarius and continued to be on meropenem as well as vancomycin. OBJECTIVE: GENERAL: When I saw him this morning, he looked well and was clearly in no apparent respiratory distress, pale, not jaundiced. No cyanosis. No lymphadenopathy, no thyromegaly. No jugular venous distension. No lower limb edema. VITAL SIGNS: His heart rate was 75, blood pressure 141/66, temperature was 97.6, respiratory rate was 18 and oxygen saturation was 97% on room air. HEAD, EYES, EARS, NOSE AND THROAT: Showed normocephalic, atraumatic. NECK: Supple. HEART: Showed normal first and second heart sounds. No gallop, rub or murmur. CHEST: Clear to auscultation. No crepitation or rhonchi. ABDOMEN: Distended, soft, nontender. NEUROLOGIC: He was sleepy, but arousable. All cranial nerves intact. He moves extremities without difficulty. He normally ambulates without assistance or assistive devices. His intake over the last 24 hours was 2213, no output was recorded. LABORATORY DATA: As of this morning, his hemoglobin was 8.9, hematocrit 28.8. His chemistry showed a serum sodium of 136, potassium 3.2, chloride 102, bicarbonate 23, anion gap of 11, BUN 2, creatinine 0.5, estimated GFR was 157 mL per minute. His glucose was 98 and calcium was 8.7. ASSESSMENT: 1. Altered mental status, improved. 2. Hyponatremia, resolved. His most recent serum sodium is up to 135. 3. Severe microcytic hypochromic anemia with low iron stores. 4. Elevated inflammatory markers including sed rate and CRP. 5. The patient did spike a temperature and his blood culture grew Streptococcus salivarius. 6. The patient has lung infiltrate, perinephric stranding. 7. Hypokalemia, continued to be an issue despite treatment with IV potassium. 8. His echocardiogram showed no evidence of vegetation or valvular heart disease. 9. His EGD and colonoscopy were essentially unremarkable. PLAN: Is to replenish his potassium. Continue with IV antibiotic. Advance diet as tolerated. Start physical and occupational therapy. Hopefully, he can be discharged to [facility] on Monday. LORI SIMENTAL MD DR: CHIDI/chiqui JOB#: [id number] / [id number]
[2018-07-29] MEDS: MEROPENEM 500 MG in IV NORMAL SALINE 50ML 50 ML IV SCH ×5 (00:03→23:19)
[2018-07-29] MEDS: POTASSIUM CL 40MEQ IN 0.9%NACL 1,000 ML IV SCH ×2 (01:05→17:17)
[2018-07-29 03:00] VITALS: BP 146/76
[2018-07-29 05:04] LABS: HEMATOCRIT 28.4 % (39.0-53.0); HEMOGLOBIN 9.1 g/dL (13.0-17.5); RED BLOOD COUNT 4.21 x10^6/uL (4.30-5.70); RED CELL DISTRIBUTION WIDTH 22.8 % (11.5-14.5); WHITE BLOOD COUNT 7.9 x10^3/uL (4.0-11.0)
[2018-07-29 05:46] LABS: CALCIUM 9.3 mg/dL (8.5-10.1); CREATININE 0.5 mg/dL (0.7-1.3); GFR 157.3
[2018-07-29 07:00] VITALS: BP 137/57
[2018-07-29] MEDS: PANTOPRAZOLE 40 MG TABLET.DR. PO SCH (07:28)
[2018-07-29] MEDS: INSULIN LISPRO 300 UNITS/3 ML INSULN.PEN. SQ SCH (07:30)
[2018-07-29] MEDS: MULTIVITAMIN with MINERAL TABLET. PO SCH (08:49)
[2018-07-29] MEDS: MULTIVITAMIN I-VITE TABLET. PO SCH ×2 (08:49→21:04)
[2018-07-29] MEDS: buPROPion XL 150 MG TAB.ER.24H. PO SCH (08:49)
[2018-07-29] MEDS: LACTOBACILLUS RHAMNOSUS GG 1 CAPSULE. PO SCH ×2 (08:49→21:02)
[2018-07-29] MEDS: POTASSIUM CHLORIDE 20 MEQ TABLET.ER. PO SCH ×3 (08:49→21:02)
[2018-07-29] MEDS: OXYBUTYNIN CHLORIDE 5 MG TABLET PO SCH ×2 (08:50→21:02)
[2018-07-29] MEDS: DOCUSATE SODIUM 100 MG CAPSULE. PO SCH ×2 (08:50→21:00)
[2018-07-29] MEDS: LISINOPRIL 20 MG TABLET PO SCH (08:50)
[2018-07-29] MEDS: amLODIPine BESYLATE 5 MG TABLET PO SCH (08:50)
[2018-07-29] MEDS: FERROUS SULFATE 325 MG TABLET. PO SCH ×2 (08:50→17:17)
[2018-07-29] MEDS: POLYETHYLENE GLYCOL 3350 17 GM PACKET. PO SCH ×2 (08:51→21:00)
[2018-07-29] MEDS: CARVEDILOL 6.25 MG TABLET. PO SCH ×2 (08:51→17:17)
[2018-07-29 11:00] VITALS: BP 133/53
[2018-07-29] MEDS ORDERED: IRON SUCROSE COMPLEX 200 MG in IV NORMAL SALINE 100ML 100 ML IV ONE (11:00)
--- NOTE | 2018-07-29 12:57 | PDOC ---
G I PROGRESS NOTE Subjective Again asleep; did not awaken. Objective No GI issues reported. Physical Exam No PE. Review of Relevant I have reviewed the following items daniel (where applicable) has been applied. Labs Laboratory Tests Test 07/27/18 14:45 07/27/18 17:04 07/28/18 02:00 07/28/18 02:05 Hemoglobin 9.0 g/dL (13.0-17.5) 8.9 g/dL (13.0-17.5) Hematocrit 29.0 % (39.0-53.0) 28.8 % (39.0-53.0) Glucose (Fingerstick) 103 mg/dL (70-99) Sodium Level 136 mmol/L (136-145) Potassium Level 3.2 mmol/L (3.5-5.1) Chloride Level 102 mmol/L (98-107) Carbon Dioxide Level 23 mmol/L (21-32) Anion Gap 11 (6-14) Blood Urea Nitrogen 2 mg/dL (8-26) Creatinine 0.5 mg/dL (0.7-1.3) Estimated GFR (Cockcroft-Gault) 157.3 Glucose Level 98 mg/dL (70-99) Calcium Level 8.7 mg/dL (8.5-10.1) Vancomycin Level Trough 21.2 mcg/mL (10.0-20.0) Vancomycin Last Dose Date [id number] Vancomycin Last Dose Time 1100 Test 07/28/18 08:02 07/28/18 09:00 07/28/18 11:09 07/28/18 16:08 Glucose (Fingerstick) 98 mg/dL (70-99) 92 mg/dL (70-99) 99 mg/dL (70-99) Vancomycin Level Trough 12.4 mcg/mL (10.0-20.0) Vancomycin Last Dose Date 07/27/18 Vancomycin Last Dose Time 210 Test 07/28/18 20:32 07/29/18 04:40 07/29/18 07:30 Glucose (Fingerstick) 92 mg/dL (70-99) 83 mg/dL (70-99) White Blood Count 7.9 x10^3/uL (4.0-11.0) Red Blood Count 4.21 x10^6/uL (4.30-5.70) Hemoglobin 9.1 g/dL (13.0-17.5) Hematocrit 28.4 % (39.0-53.0) Mean Corpuscular Volume 67 fL (79-100) Mean Corpuscular Hemoglobin 22 pg (25-35) Mean Corpuscular Hemoglobin Concent 32 g/dL (31-37) Red Cell Distribution Width 22.8 % (11.5-14.5) Platelet Count 353 x10^3/uL (140-400) Sodium Level 134 mmol/L (136-145) Potassium Level 4.0 mmol/L (3.5-5.1) Chloride Level 100 mmol/L (98-107) Carbon Dioxide Level 23 mmol/L (21-32) Anion Gap 11 (6-14) Blood Urea Nitrogen 3 mg/dL (8-26) Creatinine 0.5 mg/dL (0.7-1.3) Estimated GFR (Cockcroft-Gault) 157.3 Glucose Level 90 mg/dL (70-99) Calcium Level 9.3 mg/dL (8.5-10.1) Laboratory Tests Test 07/28/18 16:08 07/28/18 20:32 07/29/18 04:40 07/29/18 07:30 Glucose (Fingerstick) 99 mg/dL (70-99) 92 mg/dL (70-99) 83 mg/dL (70-99) White Blood Count 7.9 x10^3/uL (4.0-11.0) Red Blood Count 4.21 x10^6/uL (4.30-5.70) Hemoglobin 9.1 g/dL (13.0-17.5) Hematocrit 28.4 % (39.0-53.0) Mean Corpuscular Volume 67 fL (79-100) Mean Corpuscular Hemoglobin 22 pg (25-35) Mean Corpuscular Hemoglobin Concent 32 g/dL (31-37) Red Cell Distribution Width 22.8 % (11.5-14.5) Platelet Count 353 x10^3/uL (140-400) Sodium Level 134 mmol/L (136-145) Potassium Level 4.0 mmol/L (3.5-5.1) Chloride Level 100 mmol/L (98-107) Carbon Dioxide Level 23 mmol/L (21-32) Anion Gap 11 (6-14) Blood Urea Nitrogen 3 mg/dL (8-26) Creatinine 0.5 mg/dL (0.7-1.3) Estimated GFR (Cockcroft-Gault) 157.3 Glucose Level 90 mg/dL (70-99) Calcium Level 9.3 mg/dL (8.5-10.1) Microbiology 07/26/18 Blood Culture - Preliminary, Resulted NO GROWTH AFTER 3 DAYS Vitals/I & O Vital Sign - Last 24 Hours 07/28/18 07/28/18 07/28/18 07/28/18 15:00 16:32 17:10 19:00 Temp 98.6 98.6 98.5 98.6 98.6 98.5 Pulse 68 68 68 77 Resp 18 B/P (MAP) 141/65 (90) 141/65 (90) 141/65 133/74 (93) Pulse Ox 95 95 97 O2 Delivery Room Air Room Air Room Air O2 Flow Rate 2.0 07/28/18 07/29/18 07/29/18 07/29/18 23:00 03:00 07:00 07:59 Temp 98.9 98.9 99.3 98.9 98.9 99.3 Pulse 77 80 70 Resp 18 18 18 B/P (MAP) 154/79 (104) 146/76 (99) 137/57 (83) Pulse Ox 92 95 95 O2 Delivery Room Air Room Air Room Air Room Air 07/29/18 07/29/18 07/29/18 07/29/18 08:50 08:50 08:51 11:00 Temp 98.5 98.5 Pulse 70 70 70 74 Resp 18 B/P (MAP) 137/57 137/57 137/57 133/53 (79) Pulse Ox 93 O2 Delivery Room Air Intake and Output 07/28/18 07/28/18 07/29/18 14:59 22:59 06:59 Intake Total 380 ml 350 ml Balance 380 ml 350 ml Assessment Microcytic anemia; negative scopes. Path pending. Plan of Care: Continue current Tx, Mgmt Plan of Care Note Await path. Consider outpatient small bowel evaluation if no answer from path. DEANN MIRAMONTES MD July 29, 2018 12:57
--- NOTE | 2018-07-29 12:59 | PDOC ---
Infectious Disease Note Subjective Subjective Feeling ok No complaints Denies F/C/S/N/V/D/SOA ROS ROS per HPI Vital Sign Vital Signs Vital Signs Date Time Temp Pulse Resp B/P (MAP) Pulse Ox O2 Delivery O2 Flow Rate FiO2 07/29/18 11:00 98.5 74 18 133/53 (79) 93 Room Air 98.5 07/28/18 16:32 2.0 Physical Exam PHYSICAL EXAM GENERAL: Propped up in bed, alert, relaxed appearance HEENT: Normal conjunctivae. Oral cavity, pharynx was clear. No thrush NECK: Supple, no JVD. LUNGS: Clear to auscultation. HEART: S1, S2. 1-2/6 today ABDOMEN: Soft, nontender, nondistended with positive bowel sounds. EXTREMITIES: Without clubbing, cyanosis nor gross edema. SKIN: Warm to touch without generalized rash. NEUROLOGIC: Alert and responding appropriately PIV Labs Lab Laboratory Tests Test 07/28/18 16:08 07/28/18 20:32 07/29/18 04:40 07/29/18 07:30 Glucose (Fingerstick) 99 mg/dL (70-99) 92 mg/dL (70-99) 83 mg/dL (70-99) White Blood Count 7.9 x10^3/uL (4.0-11.0) Red Blood Count 4.21 x10^6/uL (4.30-5.70) Hemoglobin 9.1 g/dL (13.0-17.5) Hematocrit 28.4 % (39.0-53.0) Mean Corpuscular Volume 67 fL (79-100) Mean Corpuscular Hemoglobin 22 pg (25-35) Mean Corpuscular Hemoglobin Concent 32 g/dL (31-37) Red Cell Distribution Width 22.8 % (11.5-14.5) Platelet Count 353 x10^3/uL (140-400) Sodium Level 134 mmol/L (136-145) Potassium Level 4.0 mmol/L (3.5-5.1) Chloride Level 100 mmol/L (98-107) Carbon Dioxide Level 23 mmol/L (21-32) Anion Gap 11 (6-14) Blood Urea Nitrogen 3 mg/dL (8-26) Creatinine 0.5 mg/dL (0.7-1.3) Estimated GFR (Cockcroft-Gault) 157.3 Glucose Level 90 mg/dL (70-99) Calcium Level 9.3 mg/dL (8.5-10.1) Micro 07/26/18 Blood Culture - Preliminary, Resulted NO GROWTH AFTER 3 DAYS 07/24. BLD CULT RESULT 1 Preliminary Streptococcus salivarius Antibiotic RSLT#1 Ceftriaxone S<=0.25 Chloramphenicol S =2 Clindamycin R> 0.5 Erythromycin R> 0.5 Penicillin S =0.12 Vancomycin S =0.5 Objective Assessment Sepsis with Strep salivarius bacteremia (4 of 4 bottles), Repeat BC 07/26 neg so far s/p EGD and colonoscopy, 07/27. mild esophagitis, Schatzki's ring (dilated) and severe colonic diverticulosis Murmur - maybe related to anemia Fever - better Lung infiltrates PCN allergy - long time ago - has had amoxicillin Anemia Plan Plan of Care Cont meropenem Off vanc Probiotics Monitor labs/temp f/u BC Pt seen and examined LUE superficial thrombophlebitis Apply icepack, local care D/W RN D/W BELTRAN GERONIMO APRN July 29, 2018 12:59 CHARLOTTE JERNIGAN MD July 29, 2018 15:11
[2018-07-29 15:00] VITALS: BP 165/73
[2018-07-29 19:00] VITALS: BP 140/65
[2018-07-29] MEDS: DONEPEZIL HCL 5 MG TABLET. PO SCH (21:02)
[2018-07-29] MEDS: MIRTAZAPINE 7.5 MG TABLET. PO SCH (21:02)
--- NOTE | 2018-07-29 21:51 | PN ---
DATE: 07/29/2018 SUBJECTIVE: The patient is resting slightly propped up in bed, in no apparent distress. On questioning him, he denied any complaint. The nursing staff did not voice any concern and stated that he has an uneventful night. PHYSICAL EXAMINATION: GENERAL: When I examined him, he looked pale. No jaundice, cyanosis, or thyromegaly. No jugular venous distension. No lower limb edema. VITAL SIGNS: His heart rate was 70, blood pressure was 137/57, temperature was 99.3, respiratory rate was 18 and oxygen saturation was 95%. HEAD, EYES, EARS, NOSE AND THROAT: Normocephalic, atraumatic. NECK: Supple. HEART: Showed normal first and second heart sounds. No gallop, rub or murmur. CHEST: Clear to auscultation. No crepitation or rhonchi. ABDOMEN: Distended, soft, nontender. No guarding or rigidity. No organomegaly. All hernial orifices intact. Bowel sounds normal. NEUROLOGIC: He was awake, alert, responding appropriately. All cranial nerves intact. He moves extremities without difficulty. He ambulates with a walker with standby assist. His intake over the last 24 hours was 969, no output was recorded. LABORATORY DATA: As of this morning showed a serum sodium 134, potassium 4, chloride 100, bicarbonate 23, anion gap of 11, BUN 3, creatinine 0.5, estimated GFR was 157. His glucose was 90 and calcium was 9.3. His white cell count 7900, hemoglobin 9.1, hematocrit 28, MCV 67 and platelet count 353,000. ASSESSMENT: 1. Altered mental status, improved. 2. Hyponatremia, resolved. His most recent serum sodium is up to 135 mEq/L. 3. Severe microcytic hypochromic anemia with low iron stores, status post IV Venofer. His hemoglobin and hematocrit are stable. 4. Elevated inflammatory markers including sed rate and CRP. 5. The patient did spike temperature and blood culture has grown Streptococcus salivarius, for which he continues to be on IV meropenem as well as vancomycin as HE IS ALLERGIC TO PENICILLIN. 6. The patient has lung infiltrates and perinephric stranding. 7. Hypokalemia, resolved. His potassium has improved to 4 mEq. 8. Echocardiogram showed no evidence of vegetation or valvular heart disease. 9. EGD was essentially unremarkable. He did have a Schatzki ring that was dilated. He has severe diverticulosis, but no diverticulitis. PLAN: To continue with IV antibiotic. Continue with physical and occupational therapy. Hopefully, can discharge him to [facility] tomorrow if his antibiotics were switched to be given orally. LORI SIMENTAL MD DR: CHIDI/chiqui JOB#: [id number] / [id number]
[2018-07-29 23:00] VITALS: BP 151/46
[2018-07-30 03:00] VITALS: BP 138/61
[2018-07-30] MEDS: MEROPENEM 500 MG in IV NORMAL SALINE 50ML 50 ML IV SCH (05:44)
[2018-07-30 07:00] VITALS: BP 148/54
[2018-07-30] MEDS: POTASSIUM CL 40MEQ IN 0.9%NACL 1,000 ML IV SCH (07:23)
[2018-07-30] MEDS: PANTOPRAZOLE 40 MG TABLET.DR. PO SCH (07:23)
[2018-07-30 07:35] LABS: HEMATOCRIT 30.1 % (39.0-53.0); HEMOGLOBIN 9.7 g/dL (13.0-17.5)
[2018-07-30] MEDS: DOCUSATE SODIUM 100 MG CAPSULE. PO SCH (08:34)
[2018-07-30] MEDS: FERROUS SULFATE 325 MG TABLET. PO SCH (08:34)
[2018-07-30] MEDS: MULTIVITAMIN I-VITE TABLET. PO SCH (08:34)
[2018-07-30] MEDS: POLYETHYLENE GLYCOL 3350 17 GM PACKET. PO SCH (08:34)
[2018-07-30] MEDS: LISINOPRIL 20 MG TABLET PO SCH (08:35)
[2018-07-30] MEDS: MULTIVITAMIN with MINERAL TABLET. PO SCH (08:35)
[2018-07-30] MEDS: amLODIPine BESYLATE 5 MG TABLET PO SCH (08:35)
[2018-07-30] MEDS: buPROPion XL 150 MG TAB.ER.24H. PO SCH (08:35)
[2018-07-30] MEDS: CARVEDILOL 6.25 MG TABLET. PO SCH (08:36)
[2018-07-30] MEDS: OXYBUTYNIN CHLORIDE 5 MG TABLET PO SCH (08:36)
[2018-07-30] MEDS: POTASSIUM CHLORIDE 20 MEQ TABLET.ER. PO SCH ×2 (08:36→13:54)
[2018-07-30] MEDS: LACTOBACILLUS RHAMNOSUS GG 1 CAPSULE. PO SCH (08:37)
[2018-07-30 10:55] VITALS: BP 138/70
--- NOTE | 2018-07-30 12:08 | PDOC ---
Objective: Objective: No GI concerns per RN - says plan is to DC to [facility] when taking PO atbx. Vital Signs: Vital Signs Date Time Temp Pulse Resp B/P (MAP) Pulse Ox O2 Delivery O2 Flow Rate FiO2 07/30/18 10:55 98.6 84 18 138/70 (92) 94 Room Air 98.6 Labs: Laboratory Tests Test 07/30/18 07:10 Hemoglobin 9.7 g/dL Hematocrit 30.1 % Imaging: EGD and colonoscopy 07/27 Findings- mild esophagitis, Schatzki's ring (dilated), 6 cm HH, gastritis (bx) , normal duodenum (bx) severe colonic diverticulosis in sigmoid and desc colon. Normal mucosa except for melanosis- no polyps, ulcers or masses PE: GEN: NAD NEURO/PSYCH: was asleep when I stopped by, not awakened A/P: JAMILA - EGD and colonoscopy unrevealing for source as above, path pending Streptococcus salivarius bacteremia -- DC per primary/ID. Continue iron and PPI. Follow-up re: biopsy results and consider SBCE later as outpt. ANGELINA BHAT July 30, 2018 12:08
--- NOTE | 2018-07-30 12:12 | PDOC2 ---
GI CONSULT Allergies: Coded Allergies: Penicillins (Verified Allergy, Severe, Shortness of Air, 07/27/18) pt reports violent reaction,hives, swelling,and short of air A/P: A/P: Please disregard and see progress note from same day. ANGELINA BHAT July 30, 2018 12:12
--- NOTE | 2018-07-30 12:17 | PDOC ---
Infectious Disease Note Subjective Subjective Feeling ok No complaints Denies F/C/S/N/V/D/SOA Vital Sign Vital Signs Vital Signs Date Time Temp Pulse Resp B/P (MAP) Pulse Ox O2 Delivery O2 Flow Rate FiO2 07/30/18 10:55 98.6 84 18 138/70 (92) 94 Room Air 98.6 Physical Exam PHYSICAL EXAM GENERAL: Propped up in bed, alert, relaxed appearance HEENT: Normal conjunctivae. Oral cavity, pharynx was clear. No thrush NECK: Supple, no JVD. LUNGS: Clear to auscultation. HEART: S1, S2. 1-2/6 today ABDOMEN: Soft, nontender, nondistended with positive bowel sounds. EXTREMITIES: Without clubbing, cyanosis nor gross edema. SKIN: Warm to touch without generalized rash. NEUROLOGIC: Alert and responding appropriately PIV Labs Lab Laboratory Tests Test 07/30/18 07:10 Hemoglobin 9.7 g/dL (13.0-17.5) Hematocrit 30.1 % (39.0-53.0) Micro Microbiology 07/26/18 Blood Culture - Preliminary, Resulted NO GROWTH AFTER 4 DAYS Objective Assessment Sepsis with Strep salivarius bacteremia (4 of 4 bottles), Repeat BC 07/26 neg s/p EGD and colonoscopy, 07/27. mild esophagitis, Schatzki's ring (dilated) and severe colonic diverticulosis Murmur - maybe related to anemia Fever - better Lung infiltrates PCN allergy - long time ago - has had amoxicillin Anemia Plan Plan of Care change meropenem to keflex for 2 wks Off vanc Probiotics Monitor labs/temp f/u BC d/w [place] ok to d/c RICK JERNIGAN MD July 30, 2018 12:17
[2018-07-30] MEDS ORDERED: CEPH-264 PO (12:43)
--- NOTE | 2018-07-30 12:47 | SNU/HH DC ---
DISCHARGE ORDERS DISCHARGE INFORMATION: DISCHARGE DATE: July 30, 2018 FINAL DIAGNOSIS severe iron deficiency streptococcal bacteremia CONDITION ON DISCHARGE: Stable CODE STATUS: Code Status: DNR/DNI ASSISTED: SNF STAY <30 DAYS: Yes POST DISCHARGE ORDERS: ACTIVITY ORDERS: Resume previous activity WEIGHT BEARING STATUS: No restrictions DIET AFTER DISCHARGE: Regular TREATMENT/EQUIPMENT ORDERS: ADAPTIVE EQUIPMENT NEEDED: Walker Physical Therapy For: Evalulation/Treatment Occupational Therapy For: Evaluation/Treatment DISCHARGE MEDICATIONS: Home Meds Active Scripts Cephalexin (KEFLEX) 500 Mg Capsule, 500 MG PO QID for streptococcal bacteremia for 14 Days, #56 CAP Prov:LORI SIMENTAL MD 07/30/18 Reported Medications Calcium Carbonate (TUMS) 200 Mg Tab.chew, 200 MG PO PRN Q2HR PRN for GI SYMPTOMS, TAB.CHEW 07/22/18 Bupropion Hcl (WELLBUTRIN XL) 150 Mg Tab.er.24h, 1 TAB PO DAILY for depression, #30 TAB 07/22/18 Dextran 70/Hypromellose (ARTIFICIAL TEARS EYE DROPS) 15 Ml Drops, 1 DROP EACHEYE PRN Q4HRS for red,dry eyes, #15 ML 5 Refills 07/22/18 Vit A/Vit C/Vit E/Zinc/Copper (PRESERVISION AREDS SOFTGEL) 1 Each Capsule, 1 CAP PO BID for supplement, CAP 07/22/18 Mag Hydrox/Al Hydrox/Simeth (MAALOX MAXIMUM STRENGTH SUSP) 355 Ml Oral.susp, 30 ML PO PRN QID PRN for DYSPEPSIA, MISC 07/22/18 Magnesium Hydroxide (MILK OF MAGNESIA) 400 Mg/5 Ml Oral.susp, 30 ML PO PRN DAILY PRN for CONSTIPATION, MISC 07/22/18 Acetaminophen (TYLENOL) 325 Mg Tablet, 2 TAB PO PRN Q4HRS for pain, #30 TAB 07/22/18 Mirtazapine (REMERON) 15 Mg Tablet, 7.5 MG PO QHS for mental health, #30 TAB 1 Refill 07/22/18 LORI SIMENTAL MD July 30, 2018 12:47
[2018-07-30] MEDS ORDERED: CEPHALEXIN 250 MG CAPSULE. PO SCH (13:00)
[2018-07-30 14:46] VITALS: BP 140/68
--- NOTE | 2018-07-30 14:55 | NUR ---
CHRISTELLE following pt. CHRISTELLE phoned and faxed orders to [place]. Pt will transport to [facility] via facility arranged w/c van between [phone]. Pt and Pt's daughter aware of plans and agreeable. JOSE BRIGGS.
--- NOTE | 2018-07-30 15:45 | NUR ---
Discharge Note: ELEANOR MAURICIO Discharge instructions and discharge home medications reviewed with Significant Other and a copy given. All questions have been answered and understanding verbalized. The following instructions and handouts were given: Discharge Instructions Discontinued lines and drains: PIV line removed, Catheter intact. Patient discharged to [facility] with Skilled Care via Facility Transport
[2018-07-30] MEDS ORDERED: LUBIPROSTONE 8 MCG CAPSULE PO SCH (17:00)
--- NOTE | 2018-07-31 09:45 | DS ---
DATE OF DISCHARGE: 07/30/2018 HOSPITAL COURSE: The patient is an 87-year-old male patient who was transferred to [facility] as he was admitted to [facility] with altered mental status and was found to be extremely anemic. In fact, his hemoglobin was only 7.7, hematocrit 25, MCV is extremely low at 63 consistent with severe iron deficiency anemia. He was also hyponatremic, his serum sodium was only 129. His urinalysis was unremarkable. Toxic screen was unremarkable. He was extensively evaluated, and after discussion with the family, he was transferred to [facility] to elucidate the cause of his severe iron deficiency anemia. The patient is demented and does not give any useful information; however, there is no documented history of hematemesis, melena or hematochezia. There is no history of hematuria or hemoptysis. He denied any constipation or passing black tarry stool, and he was seen in consultation by the marble cutter operator, and he was scheduled for upper and lower GI endoscopy that was postponed twice, the first time he dropped his hemoglobin down to 6 grams and required blood transfusion, the second time he became septic and was treated with antibiotic empirically. Eventually, he grew Streptococcus salivarius in his blood culture, and he was treated with both meropenem and vancomycin. Eventually, he underwent both upper and lower GI endoscopy. His esophagogastroduodenoscopy showed that he has Schatzki ring that was dilated. He has mild esophagitis. His colonoscopy showed that he has severe diverticulosis without any diverticulitis. However, there is no source of active bleeding. He has received a total of 900 mg of IV Venofer, and after stabilization, decision was made to discharge him to [facility] to continue the process of rehabilitation. His antibiotics were switched to Keflex 500 mg 4 times a day for 2 weeks. PHYSICAL EXAMINATION: GENERAL: When I saw him this morning, he looked well and was clearly in no apparent respiratory distress, pale, but no jaundice, cyanosis or thyromegaly. No jugular venous distension. No lower limb edema. VITAL SIGNS: His heart rate was 84, blood pressure 138/70, temperature was 98.6, respiratory rate was 18 and oxygen saturation was 94%. HEAD, EYES, EARS, NOSE AND THROAT: Shows normocephalic, atraumatic. NECK: Supple. HEART: Showed normal first and second heart sounds. No gallop, rub or murmur. CHEST: Clear to auscultation. No crepitation or rhonchi. ABDOMEN: Slightly distended, soft, nontender. There is no guarding or rigidity. No organomegaly. All hernial orifice intact. Bowel sounds normal. NEUROLOGIC: He is demented with visual impairment, but all his other cranial nerves are intact. He moves all his extremities without difficulty, ambulates without assistance or assistive devices. His intake over the last 24 hours was 713. Output was recorded. LABORATORY DATA: His lab work this morning showed that his hemoglobin was 9.7, hematocrit 30. His chemistry showed a serum sodium 134, potassium 4, chloride 100, bicarbonate 23, anion gap of 11, BUN 3, creatinine 0.5, estimated GFR was 157 mL per minute. His glucose was 90, calcium was 9.3. DISCHARGE MEDICATIONS: He will be discharged to [facility] to continue on following medications: Keflex 500 mg 4 times a day for 2 weeks, Tylenol 650 mg every 4 hours as needed, Wellbutrin-XL 150 mg once a day, calcium carbonate 200 mg every 2 hours as needed. He is on artificial tears 1 drop to both eyes every 4 hours, Maalox 30 mL 4 times a day as needed, magnesium hydroxide for milk of magnesia 30 mL p.o. daily p.r.n., mirtazapine for Remeron 7.5 mg at bedtime. He is on PreserVision AREDS Soft Gel one capsule twice a day. FINAL DISCHARGE DIAGNOSES: 1. Altered mental status, resolved. 2. Hyponatremia, resolved. His most recent serum sodium is up to 134 mEq per liter. 3. Severe microcytic hypochromic anemia with low iron stores, status post IV Venofer. His hemoglobin and hematocrit are stable at 9.7 and 30. 4. Elevated inflammatory markers including sed rate and CRP. 5. The patient did spike his temperature and blood culture has grown Streptococcus salivarius, for which he was treated with IV meropenem, was switched to oral Keflex. 6. The patient has lung infiltrate with perinephric stranding. 7. Hypokalemia, resolved. His most recent serum potassium is up to 4 mEq per liter. 8. His echocardiogram showed no evidence of vegetation or valvular heart disease. EGD and colonoscopy were unremarkable except for Schatzki ring that was dilated. LORI SIMENTAL MD DR: CHIDI/chiqui JOB#: [id number] / [id number]
--- NOTE | 2018-07-31 09:47 | PN ---
DATE: 07/30/2018 SUBJECTIVE: The patient is resting, slightly propped up in bed, in no apparent distress. Awake, alert. On questioning him, he denied any complaint. The nursing staff did not voice any concerns that he had an eventful night. He continued to have poor appetite, but no other complaints offered. PHYSICAL EXAMINATION: GENERAL: When I examined him, he looked pale, but not jaundiced or cyanosed. No lymphadenopathy, no thyromegaly. No jugular venous distention. No limb edema. VITAL SIGNS: His heart rate was 72, blood pressure was 148/54, temperature was 99, respiratory rate was 18 and oxygen saturation was 92%. HEAD, EYES, EARS, NOSE AND THROAT: Normocephalic, atraumatic. NECK: Supple. HEART: Showed normal first and second heart sounds. No gallop, rub or murmur. CHEST: Clear to auscultation. No crepitation or rhonchi. ABDOMEN: Distended, soft, nontender. No guarding or rigidity. No organomegaly. All hernial orifice intact. Bowel sounds normal. NEUROLOGIC: He is demented, but without any obvious lateralizing sign. All his cranial nerves are intact. He moves extremities without difficulty. His intake over the last 24 hours was 230, output was 900. LABORATORY WORK: This morning showed a serum sodium of 134, potassium 4, chloride 100, bicarbonate 23, anion gap of 11, BUN 3, creatinine 0.5, estimated GFR was 157 mL per minute. His glucose was 90, calcium was 9.3. His H and H was 9.7 and 30 with normal white cell count and platelets. ASSESSMENT: 1. Altered mental status, resolved. 2. Hyponatremia, resolved. His most recent serum sodium is up to 135 mEq per liter. 3. Severe microcytic hypochromic anemia with low iron stores, status post intravenous Venofer. His most recent hemoglobin and hematocrit was 9.7 and 30 since receiving a total of 900 mg of intravenous Venofer. 4. Elevated inflammatory markers including sed rate and C-reactive protein. 5. The patient did spike his temperature and blood culture has grown Streptococcus cellulitis for which he continues to be on intravenous meropenem as well as vancomycin as HE IS ALLERGIC TO PENICILLIN. The bacteria is sensitive to ceftriaxone, chloramphenicol, PENICILLIN, and vancomycin, resistant to clindamycin and erythromycin. 6. Hypokalemia, resolved. Most recent serum potassium is up to 4 mEq per liter. 7. His echocardiogram showed no evidence of vegetation and valvular heart disease. His esophagogastroduodenoscopy was essentially unremarkable. He did have a Schatzki ring that was dilated. Had severe diverticulosis, but no diverticulitis. Plan is to discharge him back to [facility] once the Infectious Disease specialist put him on oral antibiotic. LORI SIMENTAL MD DR: CHIDI/chiqui JOB#: [id number] / [id number]
--- NOTE | 2018-07-31 15:05 | PATHOLOGY ---
[facility] Accession Number: [id number] . 01 Material submitted: . PART A: duodenum - DUODENAL BIOPSY PART B: stomach - BIOPSY ANTRUM . 01 Clinical history: . Anemia . 02 Diagnosis: A. Small bowel, duodenum, biopsy: - No pathologic diagnosis. - Normal villous architecture. . B. Stomach, antrum, biopsy: - Mild chronic inflammation, nonspecific. - No evidence of Helicobacter pylori on immunoperoxidase stain. . (SKM:mmliza; 07/31/2018) [facility]/07/31/2018 . 02 Electronically signed: . Colton Zepeda MD, Pathologist NPI- [id number] . 01 Gross description: . A. Received in formalin labeled "Martin [place], duodenal BX, rule out sprue," are 3 segments of ricketts soft tissue measuring 0.7 x 0.5 x 0.2 cm in aggregate dimensions and ranging from 0.3 to 0.4 cm in maximum dimension. The specimen is submitted entirely in cassette A1. . B. Received in formalin labeled "Martin [place], BX antrum-gastritis, rule out H. pylori," are 2 segments of ricketts soft tissue measuring 1.1 x 0.3 x 0.2 cm in aggregate dimensions and ranging from 0.5 to 0.6 cm in maximum dimension. The specimen is submitted entirely in cassette B1. (TSD; 07/30/2018) TOB/TOB . 02 Pathologist provided ICD-10: K29.50 . 02 CPT . 601762, [id number], [id number] Specimen Comment: A courtesy copy of this report has been sent to Specimen Comment: [phone], , . Specimen Comment: Report sent to ,DR SIMENTAL / DR SIGEEL Performed at: [address] [facility], [place] [id number] MD Renzo Salgado MD Phone: [phone] Performed at: [address] [facility] [address] [address] [place], [place] [id number] MD Mike Morrell MD Phone: [phone]
== END 2018-07-30 15:52 | DRG 871 ==
LOC: 5 NORTH 12:39
PROVIDERS: ADMIT Internal Medicine; ATTEND Internal Medicine
PROC: 30233N1 Transfusion of Nonautologous Red Blood Cells into Peripheral Vein, Percutaneous Approach (ICD-10-PCS; 2018-07-27)
PROC: 0D748ZZ Dilation of Esophagogastric Junction, Via Natural or Artificial Opening Endoscopic (ICD-10-PCS; 2018-07-27)
PROC: 0DB98ZX Excision of Duodenum, Via Natural or Artificial Opening Endoscopic, Diagnostic (ICD-10-PCS; principal; 2018-07-27 15:00)
PROC: 0DB68ZX Excision of Stomach, Via Natural or Artificial Opening Endoscopic, Diagnostic (ICD-10-PCS; 2018-07-27 15:00)
PROC: 0DJD8ZZ Inspection of Lower Intestinal Tract, Via Natural or Artificial Opening Endoscopic (ICD-10-PCS; 2018-07-27 15:00)
DX: A40.8 Other streptococcal sepsis (principal); G93.41 Metabolic encephalopathy; E87.1 Hypo-osmolality and hyponatremia; I31.3 Pericardial effusion (noninflammatory); L03.90 Cellulitis, unspecified; D50.9 Iron deficiency anemia, unspecified; E87.6 Hypokalemia; R79.82 Elevated C-reactive protein (CRP); R91.8 Other nonspecific abnormal finding of lung field; Z88.0 Allergy status to penicillin; K57.30 Diverticulosis of large intestine without perforation or abscess without bleeding; R63.4 Abnormal weight loss; B96.89 Other specified bacterial agents as the cause of diseases classified elsewhere; E78.5 Hyperlipidemia, unspecified; F03.90 Unspecified dementia, unspecified severity, without behavioral disturbance, psychotic disturbance, mood disturbance, and anxiety; H35.30 Unspecified macular degeneration; I11.9 Hypertensive heart disease without heart failure; K21.0 Gastro-esophageal reflux disease with esophagitis; K22.2 Esophageal obstruction; K29.70 Gastritis, unspecified, without bleeding; G89.29 Other chronic pain; F32.9 Major depressive disorder, single episode, unspecified; K44.9 Diaphragmatic hernia without obstruction or gangrene; N40.0 Benign prostatic hyperplasia without lower urinary tract symptoms; Z16.29 Resistance to other single specified antibiotic; Z79.82 Long term (current) use of aspirin; Z85.46 Personal history of malignant neoplasm of prostate; Z87.891 Personal history of nicotine dependence; Z85.51 Personal history of malignant neoplasm of bladder; Z66 Do not resuscitate; I80.9 Phlebitis and thrombophlebitis of unspecified site
CPT/HCPCS: 36415; 43239; 43450; 45378; 71045; 74177; 76705; 80048; 80053; 80202; 81001; 82274; 82962; 83605; 83690; 84145; 84443; 85007; 85014; 85018; 85025; 85027; 86850; 86900; 86901; 86920; 87040; 87077; 87205; 87804; 88305; 88342; 93306; J1756; J1956; J2185; J2704; J3370; J3480; J7040; J7042; J7050; P9016; 97116; 97530; 97535; J7030